=== PATIENT | female | born 1975 | race Caucasian/White ===

== ENCOUNTER 2017-02-07 14:56 | Emergency (ER) | payer OTHER ==
[~2017-02-07] VITALS: Ht 147.3 cm; Wt 81.6 kg
[~2017-02-07 14:56] MED LIST: SYN100 PO
[2017-02-07 14:59] VITALS: TEMP 37.5; Ht 147.3 cm; Wt 81.6 kg
[2017-02-07] MEDS ORDERED: ALBUT/IPRATROP 3MG/0.5MG NEB 3 ML VIAL INH STA (15:12)
--- NOTE | 2017-02-07 15:47 | DIAGNOSTIC IMAGING REPORT ---
CHEST 2 VIEWS ROUTINE CLINICAL HISTORY: cough eval for pnea cough. Dyspnea. COMPARISON STUDY: None FINDINGS: Poorly defined parenchymal infiltrate left base. This possibly is left lower lobe in distribution. Lungs otherwise appear clear. No evidence for cardiac enlargement. Diaphragms smooth. IMPRESSION: Left lower lobe infiltrate. Electronically signed by: David Arias M.D. 02/07/2017 3:46 PM Dictated Date/Time: 02/07/2017 3:45 PM
[2017-02-07] MEDS ORDERED: ALBUTEROL HFA 8 GM INHALER INH STA (16:29)
[2017-02-07] MEDS ORDERED: AZITHROMYCIN 250 MG TAB PO STA (16:29)
[2017-02-07] MEDS ORDERED: AZIT250T PO (16:32)
[2017-02-07 16:43] VITALS: BP 140/78; PULSE 100; O2SAT 96
--- NOTE | 2017-02-07 22:46 | EMERGENCY ROOM VISIT NOTE ---
History Report prepared by Rickeyibparisa: Sena Narvaez Under the Supervision of: Dr. Sami Pearson M.D. First contact with patient: 15:05 Chief Complaint: COUGH Stated Complaint: CANT BREATH, CHEST HURTS History of Present Illness The patient is a 42 year old female who presents to the Emergency Room with complaints of a persistent cough for the past 1 week. She reports she has been wheezing but denies any history of asthma or COPD. She notes the cough keeps her up at night. The patient is a current smoker but states she has not smoked "in a couple days" because of being sick. She also complains of rhinorrhea and a fever. The fever has not been over 100 degrees and she has been taking Ibuprofen, which has provided good relief. 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 She denies any chance of being . Source of History: patient Onset: 1 week [employer] Position: chest Symptom Intensity: moderate Quality: other (cough) Timing: other (persistent) Modifying Factors (Worsening): other (nighttime) Associated Symptoms: + fevers Review of Systems See HPI for pertinent positives & negatives. A total of 10 systems reviewed and were otherwise negative. Past Medical & Surgical Medical Problems: (1) ESOPHAGEAL REFLUX (2) HYPOTHYROIDISM NOS (3) LUMBAGO (4) TOBACCO USE DISORDER Social History Smoking Status: Current Every Day Smoker Alcohol Use: none Drug Use: none Marital Status: Housing Status: lives with family Occupation Status: employed Current/Historical Medications Scheduled Azithromycin (Zithromax), 250 MG PO DAILY Allergies Coded Allergies: No Known Allergies (Verified , 09/03/10) Physical Exam Vital Signs Date Time Temp Pulse Resp B/P Pulse Ox O2 Delivery O2 Flow Rate FiO2 02/07/17 16:43 100 22 140/78 96 02/07/17 15:36 102 22 111/86 96 Nebulizer 7.0 02/07/17 15:33 91 Room Air 02/07/17 14:59 37.5 98 18 130/76 91 Room Air Physical Exam Constitutional: Vital signs reviewed. Eyes: Pupils are equal round reactive to light. Conjunctiva are noninjected. ENT: Pharynx is clear without erythema or exudate. Mucous membranes are moist. Neck supple without meningeal signs. Respiratory: Diffuse wheezing bilaterally. Breath sounds are equal bilaterally. Cardiovascular: Regular rate and rhythm. No rubs or gallops. GI: Soft, nondistended and nontender. Bowel sounds are present. Musculoskeletal: No peripheral edema. No lower extremity tenderness. Integumentary: No cyanosis. Neurological: The patient is awake and alert. No focal deficits. Psychiatric: Normal affect. Medical Decision & Procedures ER Provider Diagnostic Interpretation: This X-Ray was reviewed and interpreted by myself and the radiologist. CHEST 2 VIEWS ROUTINE CLINICAL HISTORY: cough eval for pnea cough. Dyspnea. COMPARISON STUDY: None FINDINGS: Poorly defined parenchymal infiltrate left base. This possibly is left lower lobe in distribution. Lungs otherwise appear clear. No evidence for cardiac enlargement. Diaphragms smooth. IMPRESSION: Left lower lobe infiltrate. Electronically signed by: David Arias M.D. 02/07/2017 3:46 PM Medications Administered Medications (Trade) Dose Ordered Sig/Irving Route Start Time Stop Time Status Last Admin Dose Admin Albuterol/ Ipratropium (Duoneb) 3 ml NOW STAT INH 02/07/17 15:12 02/07/17 15:14 DC 02/07/17 15:32 3 ML Azithromycin (Zithromax Tab) 500 mg NOW STAT PO 02/07/17 16:29 02/07/17 16:30 DC 02/07/17 16:43 500 MG Albuterol (Ventolin Hfa Inhaler) 2 puffs NOW STAT INH 02/07/17 16:29 02/07/17 16:30 DC 02/07/17 16:43 2 PUFFS ED Course 1508: The patient was evaluated in room C10. A complete history and physical exam was performed. 1512: DuoNeb 3 ml INH. 1625: I reevaluated the patient. She still has minor wheezing on exam. Her Oxygen saturation is 92% on room air. I discussed her test results and discharge instructions and she verbalized complete understanding and agreement. 1629: Albuterol 2 puffs INH, Azithromycin 500 mg PO. Medical Decision This is a 42-year-old female who presents with cough and cold symptoms. Differential diagnosis includes pneumonia, bronchitis, URI, COPD. I did perform a limited focused review of portions of the patient's old chart on the electronic medical record. The patient has had no recent pertinent visits to this hospital. I did evaluate the patient as noted above. The patient is presenting with wheezing as well as cough and cold symptoms. She is a smoker. I did order and personally review the patient's chest x-ray as described above. She does appear to have an infiltrate at the left base. I did treat her with a DuoNeb. On reexamination her wheezing is improved. She did feel better. I did discuss the test results with her. She was given an albuterol MDI and a prescription for Zithromax. She was given her first dose today. She was advised to stop smoking. She was told to follow with her doctor and given a work note. Impression Primary Impression: Pneumonia involving left lung Additional Impression: Bronchospasm Scribe Attestation The scribe's documentation has been prepared under my direct and personally reviewed by me in its entirety. I confirm that the note above accurately reflects all work, treatment, procedures, and medical decision making performed by me. Departure Information Dispostion Home / Self-Care Prescriptions Azithromycin (Zithromax) 250 Mg Tab 250 MG PO DAILY, #4 TAB Prov: Sami Pearson M.D. 02/07/17 Referrals Elicia Camarillo D.O. (PCP) Patient Instructions My [facility], Pneumonia D[facility] Additional Instructions You have been examined and treated today on an emergency basis only. This is not a substitute for, or an effort to provide, complete comprehensive medical care. It is impossible to recognize and treat all injuries or illnesses in a single emergency department visit. It is therefore important that you follow up closely with your physician. Call as soon as possible for an appointment. Return for worsening symptoms or if you develop high fever, vomiting, chest pain or any other concerning symptoms. Use MDI albuterol 2 puffs every 4 hours as needed for wheezing. Start Zithromax prescription tomorrow. Problem Qualifiers Primary Impression: Pneumonia involving left lung Pneumonia type: due to unspecified organism Lung location: lower lobe of lung Qualified Codes: J18.1 - Lobar pneumonia, unspecified organism
[2017-03-29] MEDS ORDERED: ADVIN25050 INH (16:37)
[2017-03-29] MEDS ORDERED: MTR600X PO (16:37)
[2017-03-29] MEDS ORDERED: SYN75 PO (16:37)
[2017-03-29] MEDS ORDERED: SENN8.6T7 PO (16:37)
[2017-03-29] MEDS ORDERED: PRED10TA PO (16:37)
[2017-03-29] MEDS ORDERED: IPRA1AER2 INH (16:37)
== END 2017-02-07 16:44 | disposition home or self-care (01) ==
LOC: C.EDB 14:57 → C.EDC 16:44
DX: J18.1 Lobar pneumonia, unspecified organism (principal); J98.01 Acute bronchospasm; F17.200 Nicotine dependence, unspecified, uncomplicated; J34.89 Other specified disorders of nose and nasal sinuses; R50.9 Fever, unspecified; K21.9 Gastro-esophageal reflux disease without esophagitis; E03.9 Hypothyroidism, unspecified; M54.5 Low back pain

== ENCOUNTER 2017-03-25 15:42 | Inpatient (IN) | payer OTHER ==
[~2017-03-25] VITALS: Ht 147.3 cm; Wt 85.7 kg
[~2017-03-25 15:42] MED LIST changes: +AZIT250T PO; -SYN100 PO
[2017-03-25] MEDS ORDERED: ONDANSETRON INJ 2 MG/ML 2 ML VIAL IV STA (16:16)
[2017-03-25] MEDS ORDERED: MoRPHine SULFATE 4 MG/ML 1 ML CARP\\VIAL IV STA (16:16)
[2017-03-25] MEDS ORDERED: HYDR-5688 PO (16:47)
[2017-03-25] MEDS ORDERED: ALBU18002 PO (16:47)
[2017-03-25] MEDS ORDERED: HYDROmorphone INJ 1 MG/ML SYR IV STA (16:52)
[2017-03-25 17:06] LABS: BASO % 0.4 %; BASO ABS # 0.05 K/uL (0-0.2); COMPLETE YES; EOS % 7.2 %; HEMATOCRIT 43.5 % (37-47); IG% 0.2 %; LYMPH ABS # 2.03 K/uL (1.2-3.4); MEAN CELL VOLUME 85.5 fL (80-100); MEAN CORPUSCULAR HEMOGLOBIN 27.9 pg (25-34); MEAN CORPUSCULAR HGB CONC 32.6 g/dl (32-36); MEAN PLATELET VOLUME 9.8 fL (7.4-10.4); MONO % 5.7 %; NEUT % 70.5 %; PLATELET COUNT 305 K/uL (130-400); RED BLOOD COUNT 5.09 M/uL (4.2-5.4); WHITE BLOOD COUNT 12.69 K/uL (4.8-10.8)
[2017-03-25 17:25] LABS: ALT/SGPT 22 U/L (12-78); AST/SGOT 16 U/L (15-37); BLOOD UREA NITROGEN 13 mg/dl (7-18); BUN/CREATININE RATIO 17.1 (10-20); CALCIUM 9.4 mg/dl (8.5-10.1); CARBON DIOXIDE 28 mmol/L (21-32); CHLORIDE 108 mmol/L (98-107); CREATININE 0.78 mg/dl (0.60-1.20); GLUCOSE 101 mg/dl (70-99); POTASSIUM 4.3 mmol/L (3.5-5.1); SODIUM 140 mmol/L (136-145)
[2017-03-25 17:27] LABS: ALKALINE PHOSPHATASE 96 U/L (45-117)
[2017-03-25] MEDS ORDERED: ALBUT/IPRATROP 3MG/0.5MG NEB 3 ML VIAL INH STA (17:36)
--- NOTE | 2017-03-25 17:44 | DIAGNOSTIC IMAGING REPORT ---
KUB CLINICAL HISTORY: Right flank pain. Evaluate for stone. COMPARISON STUDY: None. FINDINGS: A 3 mm right pelvic density is noted. Bowel gas pattern is normal. IMPRESSION: 1. No definite urinary calculi. Indeterminate 3 mm right pelvic density. A ureteral calculus could have this appearance but is considered unlikely. 2. No evidence for a bowel obstruction. Electronically signed by: Marcus Whitlock M.D. 03/25/2017 5:42 PM Dictated Date/Time: 03/25/2017 5:40 PM
--- NOTE | 2017-03-25 17:46 | DIAGNOSTIC IMAGING REPORT ---
RIGHT RIBS UNILATERAL WITH PA CHEST CLINICAL HISTORY: Right rib pain. COMPARISON STUDY: Chest radiograph February 07, 2017. FINDINGS: There is no pneumothorax or pleural effusion. Cardiac size is normal. Mediastinal contours are normal. No acute right rib fractures are identified. IMPRESSION: No pneumothorax. No acute right rib fractures identified. Electronically signed by: Marcus Whitlock M.D. 03/25/2017 5:44 PM Dictated Date/Time: 03/25/2017 5:42 PM
[2017-03-25] MEDS ORDERED: OPTIRAY 320 IV PRN (18:15)
--- NOTE | 2017-03-25 18:45 | DIAGNOSTIC IMAGING REPORT ---
CT ANGIOGRAPHY OF THE CHEST, PULMONARY EMBOLUS PROTOCOL CLINICAL HISTORY: Right-sided chest pain. Right flank pain. COMPARISON STUDY: Chest radiograph February 07, 2017. TECHNIQUE: Following IV administration of 93 mL of Optiray-320, helical axial images of the chest were obtained utilizing the pulmonary embolus protocol. Maximal intensity projections and sagittal and coronal reformats were viewed on an independent 3D workstation. IV contrast was administered without complication. CT DOSE: 1045.06 mGy.cm FINDINGS: No pulmonary emboli are identified. There is no evidence of thoracic aortic dissection. The size of the heart is normal. There is no pericardial effusion. There is no pneumothorax or pleural effusion. There are scattered mild tree-in-bud opacities within the left lung which have improved since exam of February 07, 2017. There is an acute nondisplaced fracture of the lateral right ninth rib. IMPRESSION: 1. No pulmonary emboli identified. 2. Acute nondisplaced fracture of the lateral right ninth rib. No pneumothorax. 3. Scattered tree-in-bud opacities within the left lung which have improved since exam February 07, 2017. The findings suggest a mild infectious process. Electronically signed by: Marcus Whitlock M.D. 03/25/2017 6:43 PM Dictated Date/Time: 03/25/2017 6:35 PM
[2017-03-25] MEDS ORDERED: METHYLPREDNISOLONE 125 MG VIAL IV STA (18:54)
--- NOTE | 2017-03-25 18:54 | DIAGNOSTIC IMAGING REPORT ---
CT OF THE ABDOMEN AND PELVIS WITH CONTRAST CLINICAL HISTORY: Right flank pain. COMPARISON STUDY: KUB performed earlier today. TECHNIQUE: Following IV administration of 93 mL of Optiray-320, axial images of the abdomen and pelvis were obtained from the lung bases to the proximal femurs. Images were reviewed in the axial, sagittal, and coronal planes. IV contrast was administered without complication. The chest CT will be reported separately. FINDINGS: There is an acute nondisplaced fracture of the lateral right ninth rib. No pneumatosis, free air or portal venous gas is present. Liver, spleen, adrenal glands, kidneys and pancreas are unremarkable. There is no hydronephrosis. There is eventration of the anterior abdominal wall with a small fat-containing umbilical hernia. There is left colon diverticulosis without evidence for acute diverticulitis. There is no lymphadenopathy. No significant skeletal abnormality is are identified. Follicles are noted within the ovaries. The appendix is normal. There is no evidence for a bowel obstruction. There is a 3.3 x 2.8 cm tubular abnormality located between the rectum and the coccyx. This is likely congenital. IMPRESSION: 1. Acute nondisplaced fracture of the lateral right ninth rib. 2. No acute process within the abdomen or pelvis. 3. Left colon diverticulosis without evidence for acute diverticulitis. 5. 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 This is probably benign but is indeterminate and a follow-up nonemergent MRI of the pelvis with and without contrast is recommended. Electronically signed by: Marcus Whitlock M.D. 03/25/2017 6:52 PM Dictated Date/Time: 03/25/2017 6:46 PM
[2017-03-25] MEDS ORDERED: ALBUT/IPRATROP 3MG/0.5MG NEB 3 ML VIAL INH ONE (19:00)
[2017-03-25 19:25] VITALS: PULSE 93; O2SAT 98
[2017-03-25 19:38] LABS: URINE APPEARANCE CLEAR (CLEAR); URINE BILIRUBIN NEG (NEG); URINE COLOR YELLOW; URINE NITRITE NEG (NEG); URINE SPECIFIC GRAVITY > 1.045 (1.000-1.030); UROBILINOGEN NEG (NEG)
--- NOTE | 2017-03-25 19:42 | EMERGENCY ROOM VISIT NOTE ---
History Report prepared by Tani: Jamey Hankins Under the Supervision of: Dr. Sami Pearson M.D. First contact with patient: 16:04 Chief Complaint: BACK PAIN Stated Complaint: KIDNEY/BACK PAIN History of Present Illness The patient is a 42 year old female who presents to the Emergency Room with complaints of worsening right flank pain that started 2 weeks ago. She comes to the ED in a wheelchair and cannot get up out of it. The patient went to her primary care physician's office last week, thinking that she may be having a kidney stone. The patient had been having foggy urine and hematuria. Her ultrasound came back revealing no kidney stones, but it did reveal that her right kidney was larger than her left, and the patient was advised to drink lots of fluid. The patient states that she may have been told she has hydronephrosis. The patient also had a low grade temperature of 99. Today, she says that she went to the bathroom, and stood up, washed her hands, and coughed , and felt something pop in her right side. This pop worsened her pain. Movement worsens her pain. She has had a lingering cough from a recent bout with pneumonia. The patient denies any chest pain, vomiting, abdominal pain, diarrhea, or current urinary symptoms. She is a smoker. The patient denies any chance of . Source of History: patient Onset: 2 weeks ago Position: other (right flank) Symptom Intensity: cannot get out of wheelchair due to pain Quality: sharp Timing: worsening Modifying Factors (Worsening): movement Associated Symptoms: No abdominal pain, No chest pain, No diarrhea, No urinary symptoms (had foggy urine and hematuria last week however), No vomiting Note: Associated symptoms: No other associated symptoms noted, but still has lingering cough from bout of pneumonia, which caused worsening pain today. Low grade temperature in office last week. Review of Systems See HPI for pertinent positives & negatives. A total of 10 systems reviewed and were otherwise negative. Past Medical & Surgical Medical Problems: (1) ESOPHAGEAL REFLUX (2) HYPOTHYROIDISM NOS (3) LUMBAGO (4) TOBACCO USE DISORDER Family History No pertinent family history Social History Smoking Status: Current Every Day Smoker Alcohol Use: none Drug Use: none Marital Status: Housing Status: lives with family Occupation Status: employed Current/Historical Medications Scheduled PRN Albuterol Sulfate (Proair Respiclick), 1 PUFF PO BID PRN for SOB/Wheezing Hydrocodone/Acetaminophen 5MG/325MG ([place] 5MG/325MG), 1 TABLET PO Q6 PRN for Pain Allergies Coded Allergies: No Known Allergies (Verified , 03/25/17) Physical Exam Vital Signs Date Time Temp Pulse Resp B/P Pulse Ox O2 Delivery O2 Flow Rate FiO2 03/25/17 19:25 93 22 98 Nasal Cannula 3.0 03/25/17 18:08 95 18 94 Nasal Cannula 2.0 03/25/17 18:03 97 03/25/17 17:52 98 22 137/104 87 Room Air 03/25/17 16:01 36.7 100 22 123/68 94 Physical Exam Constitutional: Vital signs reviewed. Eyes: Pupils are equal round reactive to light. Conjunctiva are noninjected. ENT: Pharynx is clear without erythema or exudate. Mucous membranes are moist. Neck supple without meningeal signs. Respiratory: Wheezing bilaterally. Breath sounds are equal bilaterally. Cardiovascular: Regular rate and rhythm. No rubs or gallops. GI: Soft, nondistended and nontender. Bowel sounds are present. Musculoskeletal: No peripheral edema. Very tender right lower ribs. No lower extremity tenderness. Integumentary: No cyanosis. Neurological: The patient is awake and alert. No focal deficits. Psychiatric: Normal affect. Medical Decision & Procedures ER Provider Diagnostic Interpretation: Radiology results as stated below per my review and the radiologist's interpretation: RIGHT RIBS UNILATERAL WITH PA CHEST CLINICAL HISTORY: Right rib pain. COMPARISON STUDY: Chest radiograph February 07, 2017. FINDINGS: There is no pneumothorax or pleural effusion. Cardiac size is normal. Mediastinal contours are normal. No acute right rib fractures are identified. IMPRESSION: No pneumothorax. No acute right rib fractures identified. Electronically signed by: Marcus Whitlock M.D. 03/25/2017 5:44 PM Dictated Date/Time: 03/25/2017 5:42 PM KUB CLINICAL HISTORY: Right flank pain. Evaluate for stone. COMPARISON STUDY: None. FINDINGS: A 3 mm right pelvic density is noted. Bowel gas pattern is normal. IMPRESSION: 1. No definite urinary calculi. Indeterminate 3 mm right pelvic density. A ureteral calculus could have this appearance but is considered unlikely. 2. No evidence for a bowel obstruction. Electronically signed by: Marcus Whitlock M.D. 03/25/2017 5:42 PM Dictated Date/Time: 03/25/2017 5:[address] ANGIOGRAPHY OF THE CHEST, PULMONARY EMBOLUS PROTOCOL CLINICAL HISTORY: Right-sided chest pain. Right flank pain. COMPARISON STUDY: Chest radiograph February 07, 2017. TECHNIQUE: Following IV administration of 93 mL of Optiray-320, helical axial images of the chest were obtained utilizing the pulmonary embolus protocol. Maximal intensity projections and sagittal and coronal reformats were viewed on an independent 3D workstation. IV contrast was administered without complication. CT DOSE: 1045.06 mGy.cm FINDINGS: No pulmonary emboli are identified. There is no evidence of thoracic aortic dissection. The size of the heart is normal. There is no pericardial effusion. There is no pneumothorax or pleural effusion. There are scattered mild tree-in-bud opacities within the left lung which have improved since exam of February 07, 2017. There is an acute nondisplaced fracture of the lateral right ninth rib. IMPRESSION: 1. No pulmonary emboli identified. 2. Acute nondisplaced fracture of the lateral right ninth rib. No pneumothorax. 3. Scattered tree-in-bud opacities within the left lung which have improved since exam February 07, 2017. The findings suggest a mild infectious process. Electronically signed by: Marcus Whitlock M.D. 03/25/2017 6:43 PM Dictated Date/Time: 03/25/2017 6:[address] OF THE ABDOMEN AND PELVIS WITH CONTRAST CLINICAL HISTORY: Right flank pain. COMPARISON STUDY: KUB performed earlier today. TECHNIQUE: Following IV administration of 93 mL of Optiray-320, axial images of the abdomen and pelvis were obtained from the lung bases to the proximal femurs. Images were reviewed in the axial, sagittal, and coronal planes. IV contrast was administered without complication. The chest CT will be reported separately. FINDINGS: There is an acute nondisplaced fracture of the lateral right ninth rib. No pneumatosis, free air or portal venous gas is present. Liver, spleen, adrenal glands, kidneys and pancreas are unremarkable. There is no hydronephrosis. There is eventration of the anterior abdominal wall with a small fat-containing umbilical hernia. There is left colon diverticulosis without evidence for acute diverticulitis. There is no lymphadenopathy. No significant skeletal abnormality is are identified. Follicles are noted within the ovaries. The appendix is normal. There is no evidence for a bowel obstruction. There is a 3.3 x 2.8 cm tubular abnormality located between the rectum and the coccyx. This is likely congenital. IMPRESSION: 1. Acute nondisplaced fracture of the lateral right ninth rib. 2. No acute process within the abdomen or pelvis. 3. Left colon diverticulosis without evidence for acute diverticulitis. 5. 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 This is probably benign but is indeterminate and a follow-up nonemergent MRI of the pelvis with and without contrast is recommended. Electronically signed by: Marcus Whitlock M.D. 03/25/2017 6:52 PM Dictated Date/Time: 03/25/2017 6:46 PM Laboratory Results 03/25/17 16:49 Red Blood Count 5.09, Mean Corpuscular Volume 85.5, Mean Corpuscular Hemoglobin 27.9, Mean Corpuscular Hemoglobin Concent 32.6, Mean Platelet Volume 9.8, Neutrophils (%) (Auto) 70.5, Lymphocytes (%) (Auto) 16.0, Monocytes (%) (Auto) 5.7, Eosinophils (%) (Auto) 7.2, Basophils (%) (Auto) 0.4, Neutrophils # (Auto) 8.95, Lymphocytes # (Auto) 2.03, Monocytes # (Auto) 0.72, Eosinophils # (Auto) 0.92, Basophils # (Auto) 0.05 03/25/17 16:49 Test 03/25/17 16:49 03/25/17 19:09 White Blood Count 12.69 K/uL (4.8-10.8) Red Blood Count 5.09 M/uL (4.2-5.4) Hemoglobin 14.2 g/dL (12.0-16.0) Hematocrit 43.5 % (37-47) Mean Corpuscular Volume 85.5 fL (80-100) Mean Corpuscular Hemoglobin 27.9 pg (25-34) Mean Corpuscular Hemoglobin Concent 32.6 g/dl (32-36) Platelet Count 305 K/uL (130-400) Mean Platelet Volume 9.8 fL (7.4-10.4) Neutrophils (%) (Auto) 70.5 % Lymphocytes (%) (Auto) 16.0 % Monocytes (%) (Auto) 5.7 % Eosinophils (%) (Auto) 7.2 % Basophils (%) (Auto) 0.4 % Neutrophils # (Auto) 8.95 K/uL (1.4-6.5) Lymphocytes # (Auto) 2.03 K/uL (1.2-3.4) Monocytes # (Auto) 0.72 K/uL (0.11-0.59) Eosinophils # (Auto) 0.92 K/uL (0-0.5) Basophils # (Auto) 0.05 K/uL (0-0.2) RDW Standard Deviation 49.2 fL (36.4-46.3) RDW Coefficient of Variation 15.7 % (11.5-14.5) Immature Granulocyte % (Auto) 0.2 % Immature Granulocyte # (Auto) 0.02 K/uL (0.00-0.02) Anion Gap 4.0 mmol/L (3-11) Est Creatinine Clear Calc Drug Dose 83.0 ml/min Estimated GFR () 107.9 Estimated GFR (Non- 93.1 BUN/Creatinine Ratio 17.1 (10-20) Calcium Level 9.4 mg/dl (8.5-10.1) Total Bilirubin 0.2 mg/dl (0.2-1) Direct Bilirubin < 0.1 mg/dl (0-0.2) Aspartate Amino Transf (AST/SGOT) 16 U/L (15-37) Alanine Aminotransferase (ALT/SGPT) 22 U/L (12-78) Alkaline Phosphatase 96 U/L (45-117) Troponin I < 0.015 ng/ml (0-0.045) Total Protein 7.8 gm/dl (6.4-8.2) Albumin 3.9 gm/dl (3.4-5.0) Lipase 96 U/L (73-393) Urine Test NEG (NEG) Laboratory results as reviewed by me. Medications Administered Medications (Trade) Dose Ordered Sig/Irving Route Start Time Stop Time Status Last Admin Dose Admin Morphine Sulfate (MoRPHine SULFATE INJ) 4 mg ONE STAT IV 03/25/17 16:16 03/25/17 16:17 DC 03/25/17 16:41 4 MG Ondansetron HCl (Zofran Inj) 4 mg NOW STAT IV 03/25/17 16:16 03/25/17 16:17 DC 03/25/17 16:39 4 MG Hydromorphone HCl (Dilaudid Inj) 0.5 mg NOW STAT IV 03/25/17 16:52 03/25/17 16:53 DC 03/25/17 17:05 0.5 MG Albuterol/ Ipratropium (Duoneb) 3 ml NOW STAT INH 03/25/17 17:36 03/25/17 17:37 DC 03/25/17 17:56 3 ML Albuterol/ Ipratropium (Duoneb) 12 ml ONE ONCE INH 03/25/17 19:00 03/25/17 19:01 DC 03/25/17 19:25 12 ML ECG Indication: other (flank pain) Rate (beats per minute): 96 Rhythm: normal sinus Findings: no acute ischemic change, no ectopy ED Course 1605: The patient was evaluated in room B5. A complete history and physical exam was performed. 1615: I looked at the patient's medical records. The patient had a renal ultrasound on the which showed mild left hydronephrosis. 1616: Ordered Zofran Inj 4 mg IV, Morphine Sulfate Inj 4 mg IV. 1652: Ordered Dilaudid Inj 0.5 mg IV. 1653: I reevaluated the patient and she still has significant pain. 1736: Ordered Duoneb 3 ml INH. 1755: I reevaluated the patient and she is still in significant pain and her O2 saturation is only 87 on room air. She is getting a nebulizer now. She says that she is absolutely not , and we do not need to check before we do the CT scan. 1832: I reevaluated the patient and she is still having pain. 1853: I reevaluated the patient and her O2 saturation is down to 80 on room air when she went to the bathroom. She is still very wheezy on examination of her lungs. I am going to give her an hour long nebulizer treatment. The patient verbally expressed understanding and agreement of the treatment plan. The patient will be evaluated for further treatment. 1854: Ordered Solu-Medrol IV 125 mg IV. 1900: Ordered Duoneb 12 ml INH. 1908: I discussed the patient with Dr. Castillo Stuart security director - she will evaluate the patient for further treatment. Medical Decision This is a 42-year-old female who presents with right sided flank pain. Differential diagnosis includes strain, pneumothorax, pleural effusion, pneumonia, pleurisy, pulmonary embolism, kidney stone. I did perform a limited focused review of portions of the patient's old chart on the electronic medical record. The patient was seen here by myself for pneumonia in January and was treated with Zithromax. I did evaluate the patient as noted above. The patient is presenting with right flank pain for about 2 weeks. She states it got suddenly worse today when she coughed. IV access was established. I did treat her with morphine and Zofran IV. She had continued pain and was given Dilaudid IV. She was also given a DuoNeb for her wheezing. She denies a history of COPD and asthma but she does smoke. I did order and personally review the patient's KUB and chest x -rays as described above. There is no evidence of kidney stone, pneumothorax, pneumonia or rib fracture. I did order and review the patient's blood work as noted in the electronic medical record.I did reassess the patient. She is still in fairly significant pain. Her O2 saturation is in the 80s on room air. On auscultation she has continued wheezing. Because of her flank pain and hypoxia, I did order a CT of the chest, abdomen and pelvis. I did review the images myself as well as the radiology report as described above. She does not have a pulmonary embolus or hydronephrosis. She does have a nondisplaced right ninth rib fracture. I did discuss the test results with the patient. I did obtain a 12-lead EKG. There are no acute ischemic changes. I did treat her with an hour-long DuoNeb and Solu-Medrol IV as her O2 saturation remains in the 80s. She was given supplemental oxygen. I did discuss the case with the hospitalist and outpatient case manager. Consults Time Called: 1899 Consulting Physician: Dr. Castillo Stuart security director Returned Call: 1907 I discussed the patient with Dr. Castillo Stuart security director - she will evaluate the patient for further treatment. Impression Primary Impression: Hypoxia Additional Impressions: Right rib fracture Bronchospasm Scribe Attestation The scribe's documentation has been prepared under my direct and personally reviewed by me in its entirety. I confirm that the note above accurately reflects all work, treatment, procedures, and medical decision making performed by me. Departure Information Dispostion Being Evaluated By Hospitalist Referrals Elicia Camarillo D.O. (PCP) Patient Instructions My [facility] Problem Qualifiers Additional Impressions: Right rib fracture Encounter type: initial encounter Rib fracture type: single rib Fracture type: closed Qualified Codes: S22.31XA - Fracture of one rib, right side, initial encounter for closed fracture
[2017-03-25 19:48] LABS: MANUAL MICROSCOPIC REQUIRED? NO; REVIEW REQ? NO
[2017-03-25 19:52] VITALS: O2SAT 98; Ht 147.3 cm; Wt 85.7 kg
[2017-03-25] MEDS: SODIUM CHLORIDE 0.9% 1000ML 1,000 ML IV SCH (19:58)
[2017-03-25] MEDS ORDERED: ACETAMINOPHEN 325 MG TAB PO PRN (20:00)
[2017-03-25] MEDS ORDERED: ONDANSETRON INJ 2 MG/ML 2 ML VIAL IV PRN (20:00)
--- NOTE | 2017-03-25 20:13 | History and Physical ---
History & Physical Date & Time of Service: Mar 25, 2017 at 20:12 Chief Complaint: Kidney/Back Pain Primary Care Physician: Elicia Camarillo D.O. History of Present Illness Source: patient Patient is a 42yr old female with PMH of Hypothyroidism, lumbago, GERD and Tobacco use disorder presents for evaluation of worsening right flank pain which started 2 weeks ago. Patient was recent diagnosis of pneumonia and bronchitis one month ago and since then has persistent cough. States having clear expectoration which is resolving per patient. Patient was evaluated by her PCP last for foggy urine and hematuria and had renal USD which showed no kidney stones but was told her right kidney was larger than her left and she had hydronephrosis per patient. She also states having low grade fever intermittently. Today, patient heard a popping sound on her right side after a coughing episode and since then has a worsening right flank pain which increases with movement. Denies any history of fall, chest pain, SOB, palpitations, dizziness, urinary frequency or hematuria, abd pain, diarrhea but states having wheezing. Denies any other relevant history. Past Medical/Surgical History Medical Problems: (1) ESOPHAGEAL REFLUX Status: Chronic (2) HYPOTHYROIDISM NOS Status: Chronic (3) LUMBAGO Status: Chronic (4) TOBACCO USE DISORDER Status: Chronic Past Surgical History: Tonsillectomy Shoulder surgery Family History No pertinent family history Reviewed. Not relevant Social History Smoking Status: Current Every Day Smoker Alcohol Use: socially Drug Use: none Marital Status: Occupational Status: employed Immunizations History of Influenza Vaccine: No History of Tetanus Vaccine?: Yes Tetanus Immunization Date: April 24, 2004 History of Pneumococcal: No History of Hepatitis B Vaccine: Unknown Multi-Drug Resistant Organisms History of MDRO: No Allergies Coded Allergies: No Known Allergies (Verified , 03/25/17) Home Medications Scheduled PRN Albuterol Sulfate (Proair Respiclick), 1 PUFF PO BID PRN for SOB/Wheezing Hydrocodone/Acetaminophen 5MG/325MG ([place] 5MG/325MG), 1 TABLET PO Q6 PRN for Pain Review of Systems See HPI for pertinent positives & negatives. A total of 10 systems reviewed and were otherwise negative. Physical Exam Vital Signs Date Time Temp Pulse Resp B/P Pulse Ox O2 Delivery O2 Flow Rate FiO2 03/25/17 19:52 98 Nasal Cannula 3.0 03/25/17 19:25 93 22 98 Nasal Cannula 3.0 03/25/17 18:08 95 18 94 Nasal Cannula 2.0 03/25/17 18:03 97 03/25/17 17:52 98 22 137/104 87 Room Air 03/25/17 16:01 36.7 100 22 123/68 94 General Appearance: WD/WN, + mild distress (Secondary to pain) Head: normocephalic, atraumatic Eyes: normal inspection, PERRL, EOMI ENT: normal ENT inspection, hearing grossly normal Neck: supple, trachea midline Respiratory/Chest: no respiratory distress, no accessory muscle use, + wheezing , + pertinent finding (Decreased breath sounds) Cardiovascular: regular rate, rhythm, no edema, no murmur, + tachycardia Abdomen/GI: normal bowel sounds, soft, + pertinent finding (Right flank tenderness) Back: normal inspection, + right CVA tenderness Extremities/Musculoskelatal: normal inspection, no calf tenderness, no pedal edema Neurologic/Psych: mba intern II-XII nml as tested, no motor/sensory deficits, alert, normal mood/affect, oriented x 3 Skin: normal color, warm/dry Lymphatic: no adenopathy Diagnostics Laboratory Results Results Past 24 Hours Test 03/25/17 16:49 03/25/17 19:09 Range/Units White Blood Count 12.69 4.8-10.8 K/uL Red Blood Count 5.09 4.2-5.4 M/uL Hemoglobin 14.2 12.0-16.0 g/dL Hematocrit 43.5 37-47 % Mean Corpuscular Volume 85.5 80-100 fL Mean Corpuscular Hemoglobin 27.9 25-34 pg Mean Corpuscular Hemoglobin Concent 32.6 32-36 g/dl Platelet Count 305 130-400 K/uL Mean Platelet Volume 9.8 7.4-10.4 fL Neutrophils (%) (Auto) 70.5 % Lymphocytes (%) (Auto) 16.0 % Monocytes (%) (Auto) 5.7 % Eosinophils (%) (Auto) 7.2 % Basophils (%) (Auto) 0.4 % Neutrophils # (Auto) 8.95 1.4-6.5 K/uL Lymphocytes # (Auto) 2.03 1.2-3.4 K/uL Monocytes # (Auto) 0.72 0.11-0.59 K/uL Eosinophils # (Auto) 0.92 0-0.5 K/uL Basophils # (Auto) 0.05 0-0.2 K/uL RDW Standard Deviation 49.2 36.4-46.3 fL RDW Coefficient of Variation 15.7 11.5-14.5 % Immature Granulocyte % (Auto) 0.2 % Immature Granulocyte # (Auto) 0.02 0.00-0.02 K/uL Sodium Level 140 136-145 mmol/L Potassium Level 4.3 3.5-5.1 mmol/L Chloride Level 108 98-107 mmol/L Carbon Dioxide Level 28 21-32 mmol/L Anion Gap 4.0 3-11 mmol/L Blood Urea Nitrogen 13 7-18 mg/dl Creatinine 0.78 0.60-1.20 mg/dl Est Creatinine Clear Calc Drug Dose 83.0 ml/min Estimated GFR () 107.9 Estimated GFR (Non- 93.1 BUN/Creatinine Ratio 17.1 10-20 Random Glucose 101 70-99 mg/dl Calcium Level 9.4 8.5-10.1 mg/dl Total Bilirubin 0.2 0.2-1 mg/dl Direct Bilirubin < 0.1 0-0.2 mg/dl Aspartate Amino Transf (AST/SGOT) 16 15-37 U/L Alanine Aminotransferase (ALT/SGPT) 22 12-78 U/L Alkaline Phosphatase 96 45-117 U/L Troponin I < 0.015 0-0.045 ng/ml Total Protein 7.8 6.4-8.2 gm/dl Albumin 3.9 3.4-5.0 gm/dl Lipase 96 73-393 U/L Urine Color YELLOW Urine Appearance CLEAR CLEAR Urine pH 5.0 4.5-7.5 Urine Specific [place] > 1.045 1.000-1.030 Urine Protein NEG NEG Urine Glucose (UA) NEG NEG Urine Ketones NEG NEG Urine Occult Blood NEG NEG Urine Nitrite NEG NEG Urine Bilirubin NEG NEG Urine Urobilinogen NEG NEG Urine Leukocyte Esterase NEG NEG Urine Test NEG NEG Microbiology Results 03/25/17 Blood Culture, [place] Batch Pending 03/25/17 Blood Culture, [place] Batch Pending Diagnostic Radiology KUB: 1. No definite urinary calculi. Indeterminate 3 mm right pelvic density. A ureteral calculus could have this appearance but is considered unlikely. 2. No evidence for a bowel obstruction. CT chest: 1. No pulmonary emboli identified. 2. Acute nondisplaced fracture of the lateral right ninth rib. No pneumothorax. 3. Scattered tree-in-bud opacities within the left lung which have improved since exam February 07, 2017. The findings suggest a mild infectious process. CT abd: 1. Acute nondisplaced fracture of the lateral right ninth rib. 2. No acute process within the abdomen or pelvis. 3. Left colon diverticulosis without evidence for acute diverticulitis. 5. 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 This is probably benign but is indeterminate and a follow-up nonemergent MRI of the pelvis with and without contrast is recommended. EKG EKG: no acute ischemic changes Impression Assessment and Plan Acute Hypoxic respiratory failure Presented with 87% on RA Likely secondary to mild COPD exacerbation and shallow breathing from acute rib fracture Leukocytosis, low grade fever intermittently Currently saturating 94% on 2l NC CT chest: No PE, ? Left lung pneumonia Start on IV Levaquin, solumedrol, DuoNeb Oxygen PRN Acute nondisplaced fracture of the lateral right ninth rib: No pneumothorax on CT chest Pain control Right Flank pain: Presented with worsening right flank pain since 2 weeks Likely secondary to right rib fracture R/O renal caliculi/Hydronephrosis Check renal USD UA: pending CT ABD: no acute process Pain control Also on Levaquin consider Urology consult based on renal USD Incidental finding: tubular abnormality located between the rectum and coccyx. ? 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 May need nonemergent MRI of the pelvis as outpatient Hypothyroidism: Continue levothyroxine Check TSH, Free T4 as patient reports currently not taking levothyroxine Tobacco use disorder: Nicotine patch activities counselor to quit smoking DVT Px: Lovenox SQ Code status: Full code Advanced Directives Existing Living Will: No Existing Power of Indirect Fire Infantryman: No VTE Prophylaxis VTE Risk Assessment Done? Y/N: Yes Risk Level: Low
[2017-03-25] MEDS ORDERED: MoRPHine SULFATE 2 MG/ML CARP IV PRN (20:15)
[2017-03-25] MEDS ORDERED: MoRPHine SULFATE 2 MG/ML CARP ONE (20:19)
[2017-03-25 21:15] VITALS: BP 170/93; PULSE 114; TEMP 36.9; O2SAT 90
[2017-03-25] MEDS: OXYCODONE/ACETAMINOPHEN 5-325 TAB PO PRN (21:37)
[2017-03-25] MEDS ORDERED: LORAZEPAM INJ 0.5 MG in SYRINGE 0.25 ML IV ONE (22:00)
[2017-03-25] MEDS: LEVOFLOXACIN / D5W 750 MG in PREMIXED IN D5W 150 ML IV SCH (22:05)
[2017-03-25 22:16] LABS: PROTHROMBIN TIME (PATIENT) 10.3 SECONDS (9.0-12.0)
[2017-03-25] MEDS ORDERED: MoRPHine SULFATE 4 MG/ML 1 ML CARP\\VIAL ONE (22:17)
[2017-03-25] MEDS: MoRPHine SULFATE 4 MG/ML 1 ML CARP\\VIAL IV PRN (22:22)
[2017-03-25 23:28] VITALS: BP 120/77; PULSE 107; TEMP 36.7; O2SAT 92
[2017-03-25 23:32] VITALS: BP 94/55; PULSE 79; TEMP 37; O2SAT 93
[2017-03-26] VITALS (13 sets, daily range): BP systolic 113–122; BP diastolic 71–78; PULSE 83–106; TEMP 36.6–36.9; O2SAT 88–96
[2017-03-26] MEDS: OXYCODONE/ACETAMINOPHEN 5-325 TAB PO PRN ×2 (01:37→21:49)
[2017-03-26] MEDS: MoRPHine SULFATE 4 MG/ML 1 ML CARP\\VIAL IV PRN ×4 (04:14→23:54)
[2017-03-26 05:58] LABS: BASO % 0.1 %; BASO ABS # 0.01 K/uL (0-0.2); COMPLETE YES; IG% 0.2 %; LYMPH % 5.3 %; LYMPH ABS # 0.52 K/uL (1.2-3.4); MEAN CELL VOLUME 86.3 fL (80-100); MEAN CORPUSCULAR HEMOGLOBIN 27.7 pg (25-34); MEAN CORPUSCULAR HGB CONC 32.1 g/dl (32-36); MEAN PLATELET VOLUME 9.7 fL (7.4-10.4); MONO % 0.4 %; PLATELET COUNT 257 K/uL (130-400); RED BLOOD COUNT 4.52 M/uL (4.2-5.4); WHITE BLOOD COUNT 9.87 K/uL (4.8-10.8)
[2017-03-26] MEDS: LEVOTHYROXINE 75 MCG TAB PO SCH (06:21)
[2017-03-26 06:33] LABS: BUN/CREATININE RATIO 17.2 (10-20); CALCIUM 8.7 mg/dl (8.5-10.1); CREATININE 0.67 mg/dl (0.60-1.20); POTASSIUM 4.3 mmol/L (3.5-5.1)
[2017-03-26 06:43] LABS: THYROID STIMULATING HORMONE 3.46 uIu/ml (0.300-4.500)
--- NOTE | 2017-03-26 07:15 | DIAGNOSTIC IMAGING REPORT ---
ULTRASOUND KIDNEYS AND BLADDER CLINICAL HISTORY: Flank pain. Assess for renal calculi. COMPARISON STUDY: Abdominal CT dated 03/25/2017. TECHNIQUE: Real-time, grayscale, and color flow sonography of the kidneys and bladder is performed. Images are reviewed in the transverse and longitudinal planes. FINDINGS: Kidneys: The kidneys are normal in size. The right kidney measures 11.4 x 4.8 x 5.0 cm and the left kidney measures 10.1 x 5.4 x 4.2 cm. There is no hydronephrosis. No shadowing renal calculi are identified. There is no sonographic evidence of contour deforming renal mass lesion. The lower pole of the left kidney appears slightly heterogeneous. There is no corresponding lesion seen on today's CT scan and this is of doubtful significance. No perinephric fluid is identified. Bladder: The bladder is decompressed and grossly unremarkable. Bilateral ureteral jets were seen. IMPRESSION: 1. The kidneys are normal in size and without hydronephrosis. 2. There are no renal calculi identified as clinically queried. Note that this was better assessed on today's CT scan. 3. The bladder was decompressed and grossly unremarkable. Electronically signed by: Quan Esquivel M.D. 03/26/2017 7:13 AM Dictated Date/Time: 03/26/2017 7:11 AM
[2017-03-26] MEDS: ENOXAPARIN 40 MG/0.4 ML SYR SC SCH (08:00)
[2017-03-26] MEDS: ALBUT/IPRATROP 3MG/0.5MG NEB 3 ML VIAL INH SCH ×4 (08:14→20:00)
[2017-03-26] MEDS: NICOTINE 14 MG/24 HR TDSY TD SCH (08:24)
[2017-03-26] MEDS: METHYLPREDNISOLONE IV 40 MG in SYRINGE 0 ML IV SCH ×2 (08:25→21:46)
[2017-03-26] MEDS: SODIUM CHLORIDE 0.9% 1000ML 1,000 ML IV SCH ×2 (08:25→21:46)
[2017-03-26] MEDS ORDERED: PANTOprazole SOD 40 MG TAB PO ONE (09:16)
--- NOTE | 2017-03-26 09:42 | Progress Note ---
Medicine Progress Note Date & Time of Visit: Mar 26, 2017 at 09:36. Subjective 42 year old female with history of Smoking, Hypothyroidism, GERD, presenting with right flank pain. On exam, patient seen sitting up in bed states pain on the right lateral rib is about an 8, improving compared to yesterday breathing also improved compared to yesterday has white sputum, scant denies dizziness, headache, palpitations no abdominal pain, changes with urination or BM Objective Last 8 Hrs Date Time Temp Pulse Resp B/P Pulse Ox O2 Delivery O2 Flow Rate FiO2 03/26/17 08:14 94 22 93 Nasal Cannula 2.0 03/26/17 08:00 93 Nasal Cannula 2.0 03/26/17 07:20 36.6 83 16 113/75 93 2.0 03/26/17 04:39 36.9 94 20 114/71 92 Nasal Cannula 2.0 03/26/17 04:05 Nasal Cannula 3.0 Physical Exam: General- oriented x 3, not in distress, speaks in sentences with no effort Head- atraumatic Eyes- EOMI, anicteric ENT- oropharynx clear Neck- supple, no JVD, no adenopathy, no thyromegaly, no bruits appreciated Lungs- (+) mild scattered expiratory wheezing, good air entry Heart-normal rate, regular rhythm; no murmurs Abdomen- normal bowel sounds, soft, nontender Extremities- no pretibial edema, no calf tenderness; peripheral pulses intact Neuro- alert, oriented x 3; no gross focal deficits Skin- warm & dry Laboratory Results: Last 24 Hours Test 03/25/17 16:49 03/25/17 19:09 03/26/17 05:37 White Blood Count 12.69 K/uL 9.87 K/uL Red Blood Count 5.09 M/uL 4.52 M/uL Hemoglobin 14.2 g/dL 12.5 g/dL Hematocrit 43.5 % 39.0 % Mean Corpuscular Volume 85.5 fL 86.3 fL Mean Corpuscular Hemoglobin 27.9 pg 27.7 pg Mean Corpuscular Hemoglobin Concent 32.6 g/dl 32.1 g/dl Platelet Count 305 K/uL 257 K/uL Mean Platelet Volume 9.8 fL 9.7 fL Neutrophils (%) (Auto) 70.5 % 94.0 % Lymphocytes (%) (Auto) 16.0 % 5.3 % Monocytes (%) (Auto) 5.7 % 0.4 % Eosinophils (%) (Auto) 7.2 % 0.0 % Basophils (%) (Auto) 0.4 % 0.1 % Neutrophils # (Auto) 8.95 K/uL 9.28 K/uL Lymphocytes # (Auto) 2.03 K/uL 0.52 K/uL Monocytes # (Auto) 0.72 K/uL 0.04 K/uL Eosinophils # (Auto) 0.92 K/uL 0.00 K/uL Basophils # (Auto) 0.05 K/uL 0.01 K/uL RDW Standard Deviation 49.2 fL 50.4 fL RDW Coefficient of Variation 15.7 % 15.8 % Immature Granulocyte % (Auto) 0.2 % 0.2 % Immature Granulocyte # (Auto) 0.02 K/uL 0.02 K/uL Prothrombin Time 10.3 SECONDS Prothromb Time International Ratio 1.0 Sodium Level 140 mmol/L 137 mmol/L Potassium Level 4.3 mmol/L 4.3 mmol/L Chloride Level 108 mmol/L 105 mmol/L Carbon Dioxide Level 28 mmol/L 27 mmol/L Anion Gap 4.0 mmol/L 5.0 mmol/L Blood Urea Nitrogen 13 mg/dl 12 mg/dl Creatinine 0.78 mg/dl 0.67 mg/dl Est Creatinine Clear Calc Drug Dose 83.0 ml/min 96.6 ml/min Estimated GFR () 107.9 124.8 Estimated GFR (Non- 93.1 107.7 BUN/Creatinine Ratio 17.1 17.2 Random Glucose 101 mg/dl 158 mg/dl Calcium Level 9.4 mg/dl 8.7 mg/dl Total Bilirubin 0.2 mg/dl Direct Bilirubin < 0.1 mg/dl Aspartate Amino Transf (AST/SGOT) 16 U/L Alanine Aminotransferase (ALT/SGPT) 22 U/L Alkaline Phosphatase 96 U/L Troponin I < 0.015 ng/ml Total Protein 7.8 gm/dl Albumin 3.9 gm/dl Lipase 96 U/L Urine Color YELLOW Urine Appearance CLEAR Urine pH 5.0 Urine Specific [place] > 1.045 Urine Protein NEG Urine Glucose (UA) NEG Urine Ketones NEG Urine Occult Blood NEG Urine Nitrite NEG Urine Bilirubin NEG Urine Urobilinogen NEG Urine Leukocyte Esterase NEG Urine Test NEG Thyroid Stimulating Hormone (TSH) 3.460 uIu/ml Free Thyroxine 0.87 ng/dl Date/Time Source Procedure Growth Status 03/25/17 21:30 Blood Blood Culture Pending Received 03/25/17 21:27 Blood Blood Culture Pending Received Assessment & Plan 42 year old female with history of Smoking, Hypothyroidism, GERD, presenting with right flank pain. ACUTE HYPOXIC RESPIRATORY FAILURE LIKELY FROM MILD COPD EXACERBATION, RIGHT LATERAL RIB FRACTURE CT chest: No PE, ? Left lung pneumonia No pneumothorax on CT chest - improving clinically - continue Solumedrol 40mg BID, Nebs q6h, Levaquin Day 2 - pain control with PRN Toradol, Morphine continue IV fluids and Protonix, Senokot Incentive Spirometry - wean off oxygen Right Flank pain: Presented with worsening right flank pain since 2 weeks Likely secondary to right rib fracture - Renal US: unrevealing UA: essentially normal - ff up urine culture Incidental finding: tubular abnormality located between the rectum and coccyx. ? 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 - no abdominal pain, changes with urination or BM - MRI with and without contrast as outpatient Hypothyroidism: Continue levothyroxine Tobacco use disorder: Nicotine patch summer counselor to quit smoking DVT Px: Lovenox SQ Code status: Full code Dispo pending lives at home Current Inpatient Medications: Current Inpatient Medications Medications (Trade) Dose Ordered Sig/Irving Route Start Time Stop Time Status Last Admin Dose Admin Ioversol (Optiray 320) 100 ml UD PRN IV 03/25/17 18:15 03/29/17 18:14 Enoxaparin Sodium 40 mg 40 mg Q24H SC 03/26/17 07:00 04/25/17 06:59 03/26/17 08:00 40 MG Sodium Chloride (Nss 1000ml) 1,000 ml @ 75 mls/hr [id number] IV 03/25/17 19:58 04/24/17 19:57 03/26/17 08:25 75 MLS/HR Acetaminophen (Tylenol Tab) 650 mg Q4H PRN PO 03/25/17 20:00 04/24/17 19:59 Ondansetron HCl (Zofran Inj) 4 mg Q6H PRN IV 03/25/17 20:00 04/24/17 19:59 03/26/17 00:19 4 MG Oxycodone/ Acetaminophen (Percocet 5-325mg Tab) 1 tab Q4H PRN PO 03/25/17 20:15 04/08/17 20:14 03/26/17 01:37 1 TAB Albuterol/ Ipratropium 3 ml 3 ml QIDR INH 03/26/17 08:00 04/25/17 07:59 03/26/17 08:14 3 ML Levofloxacin/Prmx (Levaquin / D5W/ Premixed D5W) 150 ml @ 100 mls/hr Q24H IV 03/25/17 22:00 04/01/17 21:59 03/25/17 22:05 100 MLS/HR Levothyroxine Sodium (Synthroid Tab) 75 mcg DAILYBB PO 03/26/17 06:30 04/25/17 06:59 03/26/17 06:21 75 MCG Nicotine (Nicoderm Cq 14MG Patch) 1 patch QAM TD 03/26/17 09:00 04/25/17 08:59 Miscellaneous 1 ea 1 ea HS N/A 03/26/17 21:00 04/25/17 20:59 Methylprednisolone Sodium Succinate/ Syringe (Solu-Medrol IV/ Syringe) 0.64 ml @ 1.5 mls/min BID IV 03/26/17 09:00 04/25/17 08:59 03/26/17 08:25 1.5 MLS/MIN Morphine Sulfate (MoRPHine SULFATE INJ) 4 mg Q4H PRN IV 03/26/17 00:15 04/09/17 00:14 03/26/17 08:26 4 MG Ketorolac Tromethamine (Toradol Inj) 30 mg Q6H PRN IV 03/26/17 09:30 03/31/17 09:29 Pantoprazole Sodium (Protonix Tab) 40 mg QAM PO 03/27/17 09:00 04/26/17 08:59
[2017-03-26] MEDS ORDERED: DOCUSATE SODIUM/SENNA 50/8.6MG TAB PO ONE (09:44)
[2017-03-26] MEDS: KETOROLAC TROMETHAMINE 30 MG/ML VIAL IV PRN (14:07)
[2017-03-26] MEDS: LEVOFLOXACIN / D5W 750 MG in PREMIXED IN D5W 150 ML IV SCH (21:44)
[2017-03-27] VITALS (11 sets, daily range): BP systolic 107–135; BP diastolic 68–83; PULSE 72–95; TEMP 36.5–36.8; O2SAT 92–98
[2017-03-27] MEDS: LEVOTHYROXINE 75 MCG TAB PO SCH (05:14)
[2017-03-27] MEDS: MoRPHine SULFATE 4 MG/ML 1 ML CARP\\VIAL IV PRN ×2 (05:14→09:08)
[2017-03-27] MEDS: NICOTINE 14 MG/24 HR TDSY TD SCH (07:32)
[2017-03-27] MEDS: DOCUSATE SODIUM/SENNA 50/8.6MG TAB PO SCH (07:33)
[2017-03-27] MEDS: ENOXAPARIN 40 MG/0.4 ML SYR SC SCH (07:33)
[2017-03-27] MEDS: ALBUT/IPRATROP 3MG/0.5MG NEB 3 ML VIAL INH SCH ×4 (07:33→19:38)
[2017-03-27] MEDS: OXYCODONE/ACETAMINOPHEN 5-325 TAB PO PRN ×3 (07:34→21:12)
[2017-03-27] MEDS: PANTOprazole SOD 40 MG TAB PO SCH (07:34)
[2017-03-27] MEDS: METHYLPREDNISOLONE IV 40 MG in SYRINGE 0 ML IV SCH ×2 (07:42→21:07)
[2017-03-27] MEDS: SODIUM CHLORIDE 0.9% 1000ML 1,000 ML IV SCH (11:47)
[2017-03-27] MEDS: KETOROLAC TROMETHAMINE 30 MG/ML VIAL IV PRN ×2 (11:48→18:24)
[2017-03-27] MEDS ORDERED: MAGNESIUM HYDROXIDE SUSP 30 ML UDC PO ONE (17:00)
[2017-03-27] MEDS ORDERED: MAGNESIUM HYDROXIDE SUSP 30 ML UDC PO PRN (17:00)
--- NOTE | 2017-03-27 17:07 | Progress Note ---
Medicine Progress Note Date & Time of Visit: Mar 27, 2017 at 17:01. Subjective seen resting in bed, off oxygen states her breathing is improved compared to yesterday still has productive cough but getting less still has significant right lateral rib pain, but pain medications helping no BM yet but (+) flatus denies other symptoms Objective Last 8 Hrs Date Time Temp Pulse Resp B/P Pulse Ox O2 Delivery O2 Flow Rate FiO2 03/27/17 16:23 90 16 94 Room Air 03/27/17 15:13 36.8 92 16 107/68 92 Room Air 03/27/17 12:00 Room Air 03/27/17 11:33 36.5 86 18 135/75 93 Room Air 03/27/17 11:07 90 16 94 Room Air Physical Exam: General- oriented x 3, not in distress, speaks in sentences with no effort Eyes- anicteric Neck- no JVD Lungs- (+) mild scattered expiratory wheezing- improved compared to yesterday, good air entry Heart-normal rate, regular rhythm; no murmurs Abdomen- normal bowel sounds, soft, nontender Extremities- no pretibial edema, no calf tenderness; peripheral pulses intact Neuro- alert, oriented x 3; no gross focal deficits Skin- warm & dry Assessment & Plan 42 year old female with history of Smoking, Hypothyroidism, GERD, presenting with right flank pain. ACUTE HYPOXIC RESPIRATORY FAILURE LIKELY FROM MILD COPD EXACERBATION, RIGHT LATERAL RIB FRACTURE CT chest: No PE, ? Left lung pneumonia No pneumothorax on CT chest - off oxygen supplementation still has wheezing - continue Solumedrol 40mg BID, Nebs q6h, Levaquin Day 3 - pain control with PRN Toradol, Morphine continue IV fluids and Protonix, Senokot, add Miralax Incentive Spirometry RIGHT RIB FRACTURE Presented with worsening right flank pain since 2 weeks Likely secondary to right rib fracture - Renal US: unrevealing UA: essentially normal - blood cultures negative Incidental finding: tubular abnormality located between the rectum and coccyx. ? 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 smoking DVT Px: Lovenox SQ Code status: Full code Dispo pending lives at home Current Inpatient Medications: Current Inpatient Medications Medications (Trade) Dose Ordered Sig/Irving Route Start Time Stop Time Status Last Admin Dose Admin Ioversol (Optiray 320) 100 ml UD PRN IV 03/25/17 18:15 03/29/17 18:14 Enoxaparin Sodium 40 mg 40 mg Q24H SC 03/26/17 07:00 04/25/17 06:59 03/27/17 07:33 40 MG Sodium Chloride (Nss 1000ml) 1,000 ml @ 75 mls/hr [id number] IV 03/25/17 19:58 04/24/17 19:57 03/27/17 11:47 75 MLS/HR Acetaminophen (Tylenol Tab) 650 mg Q4H PRN PO 03/25/17 20:00 04/24/17 19:59 Ondansetron HCl (Zofran Inj) 4 mg Q6H PRN IV 03/25/17 20:00 04/24/17 19:59 03/26/17 00:19 4 MG Oxycodone/ Acetaminophen (Percocet 5-325mg Tab) 1 tab Q4H PRN PO 03/25/17 20:15 04/08/17 20:14 03/27/17 16:21 1 TAB Albuterol/ Ipratropium 3 ml 3 ml QIDR INH 03/26/17 08:00 04/25/17 07:59 03/27/17 16:23 3 ML Levofloxacin/Prmx (Levaquin / D5W/ Premixed D5W) 150 ml @ 100 mls/hr Q24H IV 03/25/17 22:00 04/01/17 21:59 03/26/17 21:44 100 MLS/HR Levothyroxine Sodium (Synthroid Tab) 75 mcg DAILYBB PO 03/26/17 06:30 04/25/17 06:59 03/27/17 05:14 75 MCG Nicotine (Nicoderm Cq 14MG Patch) 1 patch QAM TD 03/26/17 09:00 04/25/17 08:59 Miscellaneous 1 ea 1 ea HS N/A 03/26/17 21:00 04/25/17 20:59 Methylprednisolone Sodium Succinate/ Syringe (Solu-Medrol IV/ Syringe) 0.64 ml @ 1.5 mls/min BID IV 03/26/17 09:00 04/25/17 08:59 03/27/17 07:42 1.5 MLS/MIN Morphine Sulfate (MoRPHine SULFATE INJ) 4 mg Q4H PRN IV 03/26/17 00:15 04/09/17 00:14 03/27/17 09:08 4 MG Ketorolac Tromethamine (Toradol Inj) 30 mg Q6H PRN IV 03/26/17 09:30 03/31/17 09:29 03/27/17 11:48 30 MG Pantoprazole Sodium (Protonix Tab) 40 mg QAM PO 03/27/17 09:00 04/26/17 08:59 03/27/17 07:34 40 MG Senna/Docusate Sodium (Senokot S Tab) 1 tab QAM PO 03/27/17 09:00 04/26/17 08:59 03/27/17 07:33 1 TAB
[2017-03-27] MEDS: LEVOFLOXACIN / D5W 750 MG in PREMIXED IN D5W 150 ML IV SCH (21:07)
[2017-03-28] VITALS (9 sets, daily range): BP systolic 116–154; BP diastolic 69–97; PULSE 78–104; TEMP 36.4–36.6; O2SAT 90–98
[2017-03-28] MEDS: SODIUM CHLORIDE 0.9% 1000ML 1,000 ML IV SCH (00:31)
[2017-03-28] MEDS: KETOROLAC TROMETHAMINE 30 MG/ML VIAL IV PRN (00:31)
[2017-03-28] MEDS: LEVOTHYROXINE 75 MCG TAB PO SCH (06:03)
[2017-03-28] MEDS: OXYCODONE/ACETAMINOPHEN 5-325 TAB PO PRN ×3 (06:05→17:47)
[2017-03-28] MEDS: ENOXAPARIN 40 MG/0.4 ML SYR SC SCH (06:42)
[2017-03-28] MEDS: ALBUT/IPRATROP 3MG/0.5MG NEB 3 ML VIAL INH SCH ×4 (07:23→19:36)
[2017-03-28 07:49] LABS: HEMATOCRIT 36.2 % (37-47); MEAN CELL VOLUME 86.6 fL (80-100); MEAN CORPUSCULAR HEMOGLOBIN 28.2 pg (25-34); MEAN CORPUSCULAR HGB CONC 32.6 g/dl (32-36); MEAN PLATELET VOLUME 10.2 fL (7.4-10.4); PLATELET COUNT 281 K/uL (130-400); RED BLOOD COUNT 4.18 M/uL (4.2-5.4); WHITE BLOOD COUNT 17.41 K/uL (4.8-10.8)
[2017-03-28] MEDS: PANTOprazole SOD 40 MG TAB PO SCH (07:50)
[2017-03-28] MEDS: NICOTINE 14 MG/24 HR TDSY TD SCH (07:50)
[2017-03-28] MEDS: METHYLPREDNISOLONE IV 40 MG in SYRINGE 0 ML IV SCH ×2 (07:50→19:55)
[2017-03-28] MEDS: DOCUSATE SODIUM/SENNA 50/8.6MG TAB PO SCH (07:50)
[2017-03-28 08:15] LABS: BUN/CREATININE RATIO 25.7 (10-20); CREATININE 0.69 mg/dl (0.60-1.20); POTASSIUM 4.2 mmol/L (3.5-5.1)
[2017-03-28 08:34] LABS: CALCIUM 8.4 mg/dl (8.5-10.1)
[2017-03-28] MEDS ORDERED: NURSING VERBAL MED ORDER ONE (12:45)
--- NOTE | 2017-03-28 17:00 | Progress Note ---
Medicine Progress Note Date & Time of Visit: Mar 28, 2017 at 16:57. Subjective patient seen resting in bed states breathing continues to improved, coughing less still has pain on the right rib, slightly better no other symptoms Objective Last 8 Hrs Date Time Temp Pulse Resp B/P Pulse Ox O2 Delivery O2 Flow Rate FiO2 03/28/17 15:58 90 16 97 Room Air 03/28/17 15:45 93 Room Air 03/28/17 15:20 36.6 79 16 116/69 92 03/28/17 11:33 36.4 88 16 146/86 90 03/28/17 11:17 84 16 98 Room Air Physical Exam: General- oriented x 3, not in distress, speaks in sentences with no effort Eyes- anicteric Neck- no JVD Lungs- (+) mild scattered expiratory wheezing- less, good air entry b/l Heart-normal rate, regular rhythm; no murmurs Abdomen- normal bowel sounds, soft, nontender Extremities- no pretibial edema, no calf tenderness; peripheral pulses intact Neuro- alert, oriented x 3; no gross focal deficits Skin- warm & dry Laboratory Results: Last 24 Hours Test 03/28/17 06:23 White Blood Count 17.41 K/uL Red Blood Count 4.18 M/uL Hemoglobin 11.8 g/dL Hematocrit 36.2 % Mean Corpuscular Volume 86.6 fL Mean Corpuscular Hemoglobin 28.2 pg Mean Corpuscular Hemoglobin Concent 32.6 g/dl RDW Standard Deviation 52.5 fL RDW Coefficient of Variation 16.5 % Platelet Count 281 K/uL Mean Platelet Volume 10.2 fL Sodium Level 142 mmol/L Potassium Level 4.2 mmol/L Chloride Level 106 mmol/L Carbon Dioxide Level 27 mmol/L Anion Gap 9.0 mmol/L Blood Urea Nitrogen 18 mg/dl Creatinine 0.69 mg/dl Est Creatinine Clear Calc Drug Dose 97.6 ml/min Estimated GFR () 123.6 Estimated GFR (Non- 106.6 BUN/Creatinine Ratio 25.7 Random Glucose 113 mg/dl Calcium Level 8.4 mg/dl Assessment & Plan 42 year old female with history of Smoking, Hypothyroidism, GERD, presenting with right flank pain. ACUTE HYPOXIC RESPIRATORY FAILURE LIKELY FROM MILD COPD EXACERBATION, RIGHT LATERAL RIB FRACTURE CT chest: No PE, ? Left lung pneumonia No pneumothorax on CT chest - off oxygen supplementation wheezing improving - continue Solumedrol 40mg BID, Nebs q6h, Levaquin Day 4 - pain control with PRN Ibuprofen, Toradol, Percocet Incentive Spirometry - gradually improving RIGHT RIB FRACTURE Presented with worsening right flank pain since 2 weeks Likely secondary to right rib fracture - Renal US: unrevealing UA: essentially normal - blood cultures:negative Incidental finding: tubular abnormality located between the rectum and coccyx. ? 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 - no abdominal pain, changes with urination or BM - MRI with and without contrast as outpatient Hypothyroidism Continue levothyroxine Tobacco use disorder: Nicotine patch counseling case manager to quit smoking DVT Px: Lovenox SQ Code status: Full code Dispo pending lives at home Current Inpatient Medications: Current Inpatient Medications Medications (Trade) Dose Ordered Sig/Irving Route Start Time Stop Time Status Last Admin Dose Admin Ioversol (Optiray 320) 100 ml UD PRN IV 03/25/17 18:15 03/29/17 18:14 Enoxaparin Sodium (Lovenox Inj) 40 mg Q24H SC 03/26/17 07:00 04/25/17 06:59 03/28/17 06:42 40 MG Acetaminophen (Tylenol Tab) 650 mg Q4H PRN PO 03/25/17 20:00 04/24/17 19:59 Ondansetron HCl (Zofran Inj) 4 mg Q6H PRN IV 03/25/17 20:00 04/24/17 19:59 03/26/17 00:19 4 MG Oxycodone/ Acetaminophen (Percocet 5-325mg Tab) 1 tab Q4H PRN PO 03/25/17 20:15 04/08/17 20:14 03/28/17 10:56 1 TAB Albuterol/ Ipratropium 3 ml 3 ml QIDR INH 03/26/17 08:00 04/25/17 07:59 03/28/17 15:58 3 ML Levofloxacin/Prmx (Levaquin / D5W/ Premixed D5W) 150 ml @ 100 mls/hr Q24H IV 03/25/17 22:00 04/01/17 21:59 03/27/17 21:07 100 MLS/HR Levothyroxine Sodium (Synthroid Tab) 75 mcg DAILYBB PO 03/26/17 06:30 04/25/17 06:59 03/28/17 06:03 75 MCG Nicotine (Nicoderm Cq 14MG Patch) 1 patch QAM TD 03/26/17 09:00 04/25/17 08:59 Miscellaneous 1 ea 1 ea HS N/A 03/26/17 21:00 04/25/17 20:59 Methylprednisolone Sodium Succinate/ Syringe (Solu-Medrol IV/ Syringe) 0.64 ml @ 1.5 mls/min BID IV 03/26/17 09:00 04/25/17 08:59 03/28/17 07:50 1.5 MLS/MIN Morphine Sulfate (MoRPHine SULFATE INJ) 4 mg Q4H PRN IV 03/26/17 00:15 04/09/17 00:14 03/27/17 09:08 4 MG Ketorolac Tromethamine (Toradol Inj) 30 mg Q6H PRN IV 03/26/17 09:30 03/31/17 09:29 03/28/17 00:31 30 MG Pantoprazole Sodium (Protonix Tab) 40 mg QAM PO 03/27/17 09:00 04/26/17 08:59 03/28/17 07:50 40 MG Senna/Docusate Sodium (Senokot S Tab) 1 tab QAM PO 03/27/17 09:00 04/26/17 08:59 03/28/17 07:50 1 TAB Magnesium Hydroxide (Milk Of Magnesia Susp) 30 ml Q6H PRN PO 03/27/17 17:00 04/26/17 16:59 03/28/17 02:24 30 ML
[2017-03-28] MEDS: TRAMADOL HCL 50 MG TAB PO PRN (19:54)
[2017-03-28] MEDS: LEVOFLOXACIN / D5W 750 MG in PREMIXED IN D5W 150 ML IV SCH (21:21)
[2017-03-28] MEDS: IBUPROFEN 600 MG TAB PO PRN (21:21)
[2017-03-29] VITALS (8 sets, daily range): BP systolic 127–135; BP diastolic 76–86; PULSE 70–104; TEMP 36.5–36.8; O2SAT 94–98
[2017-03-29] MEDS: OXYCODONE/ACETAMINOPHEN 5-325 TAB PO PRN ×2 (03:35→12:43)
[2017-03-29] MEDS: LEVOTHYROXINE 75 MCG TAB PO SCH (06:33)
[2017-03-29] MEDS: TRAMADOL HCL 50 MG TAB PO PRN (06:33)
[2017-03-29] MEDS: ENOXAPARIN 40 MG/0.4 ML SYR SC SCH (06:34)
[2017-03-29] MEDS: ALBUT/IPRATROP 3MG/0.5MG NEB 3 ML VIAL INH SCH ×2 (07:57→11:21)
[2017-03-29 07:58] LABS: BLOOD UREA NITROGEN 14 mg/dl (7-18); BUN/CREATININE RATIO 21.9 (10-20); CALCIUM 8.3 mg/dl (8.5-10.1); CARBON DIOXIDE 26 mmol/L (21-32); CHLORIDE 106 mmol/L (98-107); CREATININE 0.65 mg/dl (0.60-1.20); GLUCOSE 103 mg/dl (70-99); SODIUM 139 mmol/L (136-145)
[2017-03-29] MEDS: PANTOprazole SOD 40 MG TAB PO SCH (08:17)
[2017-03-29] MEDS: METHYLPREDNISOLONE IV 40 MG in SYRINGE 0 ML IV SCH (08:17)
[2017-03-29] MEDS: DOCUSATE SODIUM/SENNA 50/8.6MG TAB PO SCH (08:17)
[2017-03-29] MEDS: NICOTINE 14 MG/24 HR TDSY TD SCH (08:17)
[2017-03-29] MEDS: IPRATROPIUM BROMIDE/ALBUTEROL respimat INH INH SCH ×2 (14:36→17:10)
--- NOTE | 2017-03-29 16:29 | Progress Note ---
Medicine Progress Note Date & Time of Visit: Mar 29, 2017 at 16:19. Subjective patient seen resting in bed, comfortable continues to feel improved no dyspnea cough is less has moderate right rib pain, also improving ambulates with no problems denies other symptoms Objective Last 8 Hrs Date Time Temp Pulse Resp B/P Pulse Ox O2 Delivery O2 Flow Rate FiO2 03/29/17 16:00 Room Air 03/29/17 15:50 36.8 92 18 127/76 94 Room Air 03/29/17 12:27 36.5 85 20 130/81 94 03/29/17 12:00 Room Air 03/29/17 11:21 72 18 98 Room Air Physical Exam: General- oriented x 3, not in distress, speaks in sentences with no effort Eyes- anicteric Neck- no JVD Lungs- mild intermittent expiratory wheeze bilaterally, good air entry, no rales Heart-normal rate, regular rhythm; no murmurs Abdomen- normal bowel sounds, soft, nontender Extremities- no pretibial edema, no calf tenderness; peripheral pulses intact Neuro- alert, oriented x 3; no gross focal deficits Skin- warm & dry Laboratory Results: Last 24 Hours Test 03/28/17 16:55 03/29/17 06:25 03/29/17 08:30 Bedside Glucose 121 mg/dl Sodium Level 139 mmol/L Potassium Level mmol/L 4.0 mmol/L Chloride Level 106 mmol/L Carbon Dioxide Level 26 mmol/L Anion Gap 7.0 mmol/L Blood Urea Nitrogen 14 mg/dl Creatinine 0.65 mg/dl Est Creatinine Clear Calc Drug Dose 103.6 ml/min Estimated GFR () 126.0 Estimated GFR (Non- 108.7 BUN/Creatinine Ratio 21.9 Random Glucose 103 mg/dl Calcium Level 8.3 mg/dl Assessment & Plan 42 year old female with history of Smoking, Hypothyroidism, GERD, presenting with right flank pain. ACUTE HYPOXIC RESPIRATORY FAILURE LIKELY FROM MILD COPD EXACERBATION, RIGHT LATERAL RIB FRACTURE CT chest: No PE, questionable Left lung pneumonia No pneumothorax on CT chest - placed on 2-3 L o2 supplement via NC - given Solumedrol taper, Nebs q6h, Levaquin 500mg x 5 days - improved gradually off oxygen supplementation wheezing improved - pain control with PRN Ibuprofen, Toradol, Percocet Incentive Spirometry -- overall improved discharge plan: Prednisone taper Advair BID Combivent q6h Albuterol PRN ff up with PCP on Friday RIGHT RIB FRACTURE Presented with worsening right flank pain since 2 weeks - Likely secondary to right rib fracture - CT chest: 1. No pulmonary emboli identified. 2. Acute nondisplaced fracture of the lateral right ninth rib. No pneumothorax. 3. Scattered tree-in-bud opacities within the left lung which have improved since exam February 07, 2017. The findings suggest a mild infectious process. - Renal US: unrevealing UA: essentially normal blood cultures:negative Incidental finding: tubular abnormality located between the rectum and coccyx. ? 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 Acute nondisplaced fracture of the lateral right ninth rib. 2. No acute process within the abdomen or pelvis. 3. Left colon diverticulosis without evidence for acute diverticulitis. 5. 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 This is probably benign but is indeterminate and a follow-up nonemergent MRI of the pelvis with and without contrast is recommended. - no abdominal pain, changes with urination or BM - MRI with and without contrast as outpatient Hypothyroidism Continue levothyroxine Tobacco use disorder: Nicotine patch counselled to quit smoking DVT Px: Lovenox SQ given Code status: Full code Dispo d/c home today ff up with PCP on Saturday April 01, 2017 at 1245pm. Current Inpatient Medications: Current Inpatient Medications Medications (Trade) Dose Ordered Sig/Irving Route Start Time Stop Time Status Last Admin Dose Admin Ioversol (Optiray 320) 100 ml UD PRN IV 03/25/17 18:15 03/29/17 18:14 Enoxaparin Sodium (Lovenox Inj) 40 mg Q24H SC 03/26/17 07:00 04/25/17 06:59 03/29/17 06:34 40 MG Acetaminophen (Tylenol Tab) 650 mg Q4H PRN PO 03/25/17 20:00 04/24/17 19:59 Ondansetron HCl (Zofran Inj) 4 mg Q6H PRN IV 03/25/17 20:00 04/24/17 19:59 03/26/17 00:19 4 MG Oxycodone/ Acetaminophen 1 tab 1 tab Q4H PRN PO 03/25/17 20:15 04/08/17 20:14 03/29/17 12:43 1 TAB Levofloxacin/Prmx (Levaquin / D5W/ Premixed D5W) 150 ml @ 100 mls/hr Q24H IV 03/25/17 22:00 04/01/17 21:59 03/28/17 21:21 100 MLS/HR Levothyroxine Sodium (Synthroid Tab) 75 mcg DAILYBB PO 03/26/17 06:30 04/25/17 06:59 03/29/17 06:33 75 MCG Nicotine (Nicoderm Cq 14MG Patch) 1 patch QAM TD 03/26/17 09:00 04/25/17 08:59 Miscellaneous 1 ea 1 ea HS N/A 03/26/17 21:00 04/25/17 20:59 Methylprednisolone Sodium Succinate/ Syringe (Solu-Medrol IV/ Syringe) 0.64 ml @ 1.5 mls/min BID IV 03/26/17 09:00 04/25/17 08:59 03/29/17 08:17 1.5 MLS/MIN Morphine Sulfate (MoRPHine SULFATE INJ) 4 mg Q4H PRN IV 03/26/17 00:15 04/09/17 00:14 03/27/17 09:08 4 MG Pantoprazole Sodium (Protonix Tab) 40 mg QAM PO 03/27/17 09:00 04/26/17 08:59 03/29/17 08:17 40 MG Senna/Docusate Sodium (Senokot S Tab) 1 tab QAM PO 03/27/17 09:00 04/26/17 08:59 03/29/17 08:17 1 TAB Magnesium Hydroxide (Milk Of Magnesia Susp) 30 ml Q6H PRN PO 03/27/17 17:00 04/26/17 16:59 03/28/17 02:24 30 ML Tramadol HCl (Ultram Tab) 50 mg Q6H PRN PO 03/28/17 17:00 04/27/17 16:59 03/29/17 06:33 50 MG Ibuprofen (Motrin Tab) 600 mg TID PRN PO 03/28/17 17:00 04/27/17 16:59 03/28/17 21:21 600 MG Albuterol/ Ipratropium (Combivent Respimat Inh) 1 puffs QID INH 03/29/17 14:00 04/28/17 13:59 03/29/17 14:36 1 PUFFS
[2017-03-29] MEDS ORDERED: SENN8.6T7 PO (16:37)
[2017-03-29] MEDS ORDERED: SYN75 PO (16:37)
[2017-03-29] MEDS ORDERED: MTR600X PO (16:37)
[2017-03-29] MEDS ORDERED: PRED10TA PO (16:37)
[2017-03-29] MEDS ORDERED: ADVIN25050 INH (16:37)
[2017-03-29] MEDS ORDERED: IPRA1AER2 INH (16:37)
--- NOTE | 2017-03-29 16:39 | Discharge Instructions ---
Discharge Instructions Date of Service Mar 29, 2017. Admission Reason for Admission: Flank Pain Discharge Discharge Diagnosis / Problem: RIGHT RIB PAIN Discharge Goals Goal(s): Diagnostic testing Activity Recommendations Activity Limitations: as noted below (NO HEAVY EXERTION UNTIL RE-EVALUATED BY PRIMARY CARE PHYSICIAN) Instructions / Follow-Up Instructions / Follow-Up PLEASE REVIEW YOUR NEW MEDICATION LIST AND FOLLOW INSTRUCTIONS CAREFULLY. NO DRIVING WHILE TAKING NORCO. TAKE IBUPROFEN WITH FOOD. ENSURE ADEQUATE DAILY FLUID INTAKE. NO SMOKING. CONTINUE TO USE INCENTIVE SPIROMETRY. CALL PRIMARY CARE PHYSICIAN OR RETURN TO ER IMMEDIATELY IF WITH RECURRENCE OF SYMPTOMS, INCREASING SHORTNESS OF BREATH, COUGH, FEVER/CHILLS, INCREASING PAIN. FOLLOW UP WITH DR. MUNOZ ON SATURDAY APRIL 01, 2017 AT 12:45PM. Current Hospital Diet Patient's current hospital diet: AHA Diet (Heart Healthy) Discharge Diet Recommended Diet: AHA Diet (Heart Healthy) Pending Studies Studies pending at discharge: yes List of pending studies: MRI ABDOMEN AND PELVIS Medical Emergencies . Who to Call and When: Medical Emergencies: If at any time you feel your situation is an emergency, please call 911 immediately. . Non-Emergent Contact Non-Emergency issues call your: Primary Care Provider Call Non-Emergent contact if: you have a fever, your pain is not controlled, you have any medication questions . Past History Medical & Surgical History: (1) Calcific tendinitis of left shoulder (2) Pneumonia involving left lung (3) Hypoxia (4) Right rib fracture (5) Bronchospasm (6) Flank pain (7) TOBACCO USE DISORDER (8) LUMBAGO (9) HYPOTHYROIDISM NOS (10) ESOPHAGEAL REFLUX . "Provider Documentation" section prepared by Abelardo Esparza. . VTE Core Measure Inpt VTE Proph given/why not?: Enoxaparin (Lovenox)SQ [place] Drug Monitoring Program Search Results: patient reviewed within database, no issues identified
[2017-03-29] MEDS: IBUPROFEN 600 MG TAB PO PRN (17:10)
--- NOTE | 2017-03-29 17:18 | Discharge Summary ---
Discharge Summary Date of Service Mar 29, 2017. Discharge Summary Admission Date: Mar 25, 2017 at 20:02 Discharge Date: Mar 29, 2017 Discharge Disposition: Home Principal Diagnosis: ACUTE HYPOXIC RESPIRATORY FAILURE LIKELY FROM MILD COPD EXACERBATION, RIGHT LATERAL RIB FRACTURE Secondary Diagnoses/Problems: Please refer to hospital course below for further evaluation. Procedures: CT ANGIOGRAPHY OF THE CHEST, PULMONARY EMBOLUS PROTOCOL CLINICAL HISTORY: Right-sided chest pain. Right flank pain. COMPARISON STUDY: Chest radiograph February 07, 2017. TECHNIQUE: Following IV administration of 93 mL of Optiray-320, helical axial images of the chest were obtained utilizing the pulmonary embolus protocol. Maximal intensity projections and sagittal and coronal reformats were viewed on an independent 3D workstation. IV contrast was administered without complication. CT DOSE: 1045.06 mGy.cm FINDINGS: No pulmonary emboli are identified. There is no evidence of thoracic aortic dissection. The size of the heart is normal. There is no pericardial effusion. There is no pneumothorax or pleural effusion. There are scattered mild tree-in-bud opacities within the left lung which have improved since exam of February 07, 2017. There is an acute nondisplaced fracture of the lateral right ninth rib. IMPRESSION: 1. No pulmonary emboli identified. 2. Acute nondisplaced fracture of the lateral right ninth rib. No pneumothorax. 3. Scattered tree-in-bud opacities within the left lung which have improved since exam February 07, 2017. The findings suggest a mild infectious process. CT OF THE ABDOMEN AND PELVIS WITH CONTRAST CLINICAL HISTORY: Right flank pain. COMPARISON STUDY: KUB performed earlier today. TECHNIQUE: Following IV administration of 93 mL of Optiray-320, axial images of the abdomen and pelvis were obtained from the lung bases to the proximal femurs. Images were reviewed in the axial, sagittal, and coronal planes. IV contrast was administered without complication. The chest CT will be reported separately. FINDINGS: There is an acute nondisplaced fracture of the lateral right ninth rib. No pneumatosis, free air or portal venous gas is present. Liver, spleen, adrenal glands, kidneys and pancreas are unremarkable. There is no hydronephrosis. There is eventration of the anterior abdominal wall with a small fat-containing umbilical hernia. There is left colon diverticulosis without evidence for acute diverticulitis. There is no lymphadenopathy. No significant skeletal abnormality is are identified. Follicles are noted within the ovaries. The appendix is normal. There is no evidence for a bowel obstruction. There is a 3.3 x 2.8 cm tubular abnormality located between the rectum and the coccyx. This is likely congenital. IMPRESSION: 1. Acute nondisplaced fracture of the lateral right ninth rib. 2. No acute process within the abdomen or pelvis. 3. Left colon diverticulosis without evidence for acute diverticulitis. 5. 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 This is probably benign but is indeterminate and a follow-up nonemergent MRI of the pelvis with and without contrast is recommended. ULTRASOUND KIDNEYS AND BLADDER CLINICAL HISTORY: Flank pain. Assess for renal calculi. COMPARISON STUDY: Abdominal CT dated 03/25/2017. TECHNIQUE: Real-time, grayscale, and color flow sonography of the kidneys and bladder is performed. Images are reviewed in the transverse and longitudinal planes. FINDINGS: Kidneys: The kidneys are normal in size. The right kidney measures 11.4 x 4.8 x 5.0 cm and the left kidney measures 10.1 x 5.4 x 4.2 cm. There is no hydronephrosis. No shadowing renal calculi are identified. There is no sonographic evidence of contour deforming renal mass lesion. The lower pole of the left kidney appears slightly heterogeneous. There is no corresponding lesion seen on today's CT scan and this is of doubtful significance. No perinephric fluid is identified. Bladder: The bladder is decompressed and grossly unremarkable. Bilateral ureteral jets were seen. IMPRESSION: 1. The kidneys are normal in size and without hydronephrosis. 2. There are no renal calculi identified as clinically queried. Note that this was better assessed on today's CT scan. 3. The bladder was decompressed and grossly unremarkable. Pending Studies/Follow-Up: MRI of the abdomen and pelvis; Please refer to hospital course below Medication Reconciliation New Medications: Fluticasone Prop/Salmeterol (Advair Diskus 250-50 Mcg/Dose) 14 Puff/1 Inhaler Aerp 1 PUFF INH BID for 30 Days, #1 INHA 1 Refill Prednisone Tab (Prednisone) 10 Mg Tab 10 MG PO UD, #15 TAB take 4 tabs po daily x 2 days, then take 2 tabs po daily x 2 days, then take 1 tab po daily x 2 days, then take 1/2 tab po daily x 2 days, then STOP Ibuprofen (Ibuprofen) 600 Mg Tab 600 MG PO TID PRN for pain, #15 TAB with full stomach Ipratropium-Albuterol (Combivent Respimat) 1 Aer Aer 1 PUFFS INH QID for 7 Days, #1 INHA 1 Refill Levothyroxine Sodium (Synthroid) 75 Mcg Tab 75 MCG PO DAILYBB for 30 Days, TAB Sennosides-Docusate Sodium (Senokot S) 1 Tab Tab 1 TAB PO QAM, #10 TAB take 1 tab daily while taking Nye Continued Medications: Albuterol Sulfate (Proair Respiclick) 108 Mcg/Act Aer 1 PUFF PO BID PRN for SOB/Wheezing, #9 Hydrocodone/Acetaminophen 5MG/325MG (Nye 5MG/325MG) Tab 1 TABLET PO Q6 PRN for Pain, TAB PRN PAIN Admission Information HPI (per Admitting provider): Patient is a 42yr old female with PMH of Hypothyroidism, lumbago, GERD and Tobacco use disorder presents for evaluation of worsening right flank pain which started 2 weeks ago. Patient was recent diagnosis of pneumonia and bronchitis one month ago and since then has persistent cough. States having clear expectoration which is resolving per patient. Patient was evaluated by her PCP last for foggy urine and hematuria and had renal USD which showed no kidney stones but was told her right kidney was larger than her left and she had hydronephrosis per patient. She also states having low grade fever intermittently. Today, patient heard a popping sound on her right side after a coughing episode and since then has a worsening right flank pain which increases with movement. Denies any history of fall, chest pain, SOB, palpitations, dizziness, urinary frequency or hematuria, abd pain, diarrhea but states having wheezing. Denies any other relevant history. Physical Exam (per Admitting): General Appearance: WD/WN, + mild distress (Secondary to pain) Head: normocephalic, atraumatic Eyes: normal inspection, PERRL, EOMI ENT: normal ENT inspection, hearing grossly normal Neck: supple, trachea midline Respiratory/Chest: no respiratory distress, no accessory muscle use, + wheezing, + pertinent finding (Decreased breath sounds) Cardiovascular: regular rate, rhythm, no edema, no murmur, + tachycardia Abdomen/GI: normal bowel sounds, soft, + pertinent finding (Right flank tenderness) Back: normal inspection, + right CVA tenderness Extremities/Musculoskelatal: normal inspection, no calf tenderness, no pedal edema Neurologic/Psych: 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 ACUTE HYPOXIC RESPIRATORY FAILURE LIKELY FROM MILD COPD EXACERBATION, RIGHT LATERAL RIB FRACTURE CT chest: No PE, questionable Left lung pneumonia No pneumothorax on CT chest - placed on 2-3 L o2 supplement via NC - given Solumedrol taper, Nebs q6h, Levaquin 500mg x 5 days - improved gradually off oxygen supplementation wheezing improved - pain control with PRN Ibuprofen, Toradol, Percocet Incentive Spirometry -- overall improved discharge plan: Prednisone taper Advair BID Combivent q6h Albuterol PRN ff up with PCP on Friday RIGHT RIB FRACTURE Presented with worsening right flank pain since 2 weeks - Likely secondary to right rib fracture - CT chest: 1. No pulmonary emboli identified. 2. Acute nondisplaced fracture of the lateral right ninth rib. No pneumothorax. 3. Scattered tree-in-bud opacities within the left lung which have improved since exam February 07, 2017. The findings suggest a mild infectious process. - Renal US: unrevealing UA: essentially normal blood cultures:negative Incidental finding: tubular abnormality located between the rectum and coccyx. ? 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 Acute nondisplaced fracture of the lateral right ninth rib. 2. No acute process within the abdomen or pelvis. 3. Left colon diverticulosis without evidence for acute diverticulitis. 5. 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 This is probably benign but is indeterminate and a follow-up nonemergent MRI of the pelvis with and without contrast is recommended. - no abdominal pain, changes with urination or BM - MRI with and without contrast as outpatient Hypothyroidism Continue levothyroxine Tobacco use disorder: Nicotine patch counselled to quit smoking Dispo d/c home ff up with PCP on Saturday April 01, 2017 at 1245pm. Total time spent on discharge = 30 minutes This includes examination of the patient, discharge planning, medication reconciliation, and communication with other providers. Discharge Instructions Discharge Instructions Date of Service Mar 29, 2017. Admission Reason for Admission: Flank Pain Discharge Discharge Diagnosis / Problem: RIGHT RIB PAIN Discharge Goals Goal(s): Diagnostic testing Activity Recommendations Activity Limitations: as noted below (NO HEAVY EXERTION UNTIL RE-EVALUATED BY PRIMARY CARE PHYSICIAN) Instructions / Follow-Up Instructions / Follow-Up PLEASE REVIEW YOUR NEW MEDICATION LIST AND FOLLOW INSTRUCTIONS CAREFULLY. NO DRIVING WHILE TAKING NORCO. TAKE IBUPROFEN WITH FOOD. ENSURE ADEQUATE DAILY FLUID INTAKE. NO SMOKING. CONTINUE TO USE INCENTIVE SPIROMETRY. CALL PRIMARY CARE PHYSICIAN OR RETURN TO ER IMMEDIATELY IF WITH RECURRENCE OF SYMPTOMS, INCREASING SHORTNESS OF BREATH, COUGH, FEVER/CHILLS, INCREASING PAIN. FOLLOW UP WITH DR. MUNOZ ON SATURDAY APRIL 01, 2017 AT 12:45PM. Current Hospital Diet Patient's current hospital diet: AHA Diet (Heart Healthy) Discharge Diet Recommended Diet: AHA Diet (Heart Healthy) Pending Studies Studies pending at discharge: yes List of pending studies: MRI ABDOMEN AND PELVIS Medical Emergencies . Who to Call and When: Medical Emergencies: If at any time you feel your situation is an emergency, please call 911 immediately. . Non-Emergent Contact Non-Emergency issues call your: Primary Care Provider Call Non-Emergent contact if: you have a fever, your pain is not controlled, you have any medication questions . Past History Medical & Surgical History: (1) Calcific tendinitis of left shoulder (2) Pneumonia involving left lung (3) Hypoxia (4) Right rib fracture (5) Bronchospasm (6) Flank pain (7) TOBACCO USE DISORDER (8) LUMBAGO (9) HYPOTHYROIDISM NOS (10) ESOPHAGEAL REFLUX . "Provider Documentation" section prepared by Abelardo Esparza. . VTE Core Measure Inpt VTE Proph given/why not?: Enoxaparin (Lovenox)SQ [place] Drug Monitoring Program Search Results: patient reviewed within database, no issues identified
== END 2017-03-29 17:45 | disposition home or self-care (01) | DRG 189 ==
LOC: ENRESERVTM → ENRESERVDT → C.EDB 15:43 → C.MED 20:02
PROVIDERS: ADMIT Internal Medicine; ATTEND Internal Medicine
DX: J96.01 Acute respiratory failure with hypoxia (principal); J18.9 Pneumonia, unspecified organism; J44.0 Chronic obstructive pulmonary disease with (acute) lower respiratory infection; J44.1 Chronic obstructive pulmonary disease with (acute) exacerbation; S22.31XA Fracture of one rib, right side, initial encounter for closed fracture; X58.XXXA Exposure to other specified factors, initial encounter; R93.8 Abnormal findings on diagnostic imaging of other specified body structures; E03.9 Hypothyroidism, unspecified; F17.200 Nicotine dependence, unspecified, uncomplicated; Z87.01 Personal history of pneumonia (recurrent)

== ENCOUNTER → 2017-09-02 | Outpatient (CLI) | payer OTHER ==
[~2017-09-02] MED LIST changes: +ADVIN25050 INH; +ALBU18002 PO; -AZIT250T PO; +HYDR-5688 PO; +IPRA1AER2 INH; +MTR600X PO; +PRED10TA PO; +SENN8.6T7 PO; +SYN75 PO
--- NOTE | 2017-09-02 15:30 | MAMMOGRAPHY REPORT ---
BILATERAL DIGITAL DIAGNOSTIC MAMMOGRAM TOMOSYNTHESIS WITH CAD AND TARGETED LEFT ULTRASOUND: 09/02/2017 CLINICAL HISTORY: 42-year-old woman presents for bilateral screening mammography. She is late to fol low-up for repeat spot magnification views in the right breast to assess multiple clusters of benign- appearing microcalcifications are just a history of prior benign left breast ultrasound guided core b iopsy. TECHNIQUE: Bilateral CC and MLO 2-D and tomosynthesis images, spot magnification right CC and ML vie ws were obtained. Current study was also evaluated with a Computer Aided Detection (CAD) system. COMPARISON: Comparison is made to exams dated: 08/26/2016 mammogram, 02/22/2016 mammogram, 08/30/2015 a spiration, 08/30/2015 mammogram, and 08/24/2015 mammogram - [facility]. BREAST COMPOSITION: The tissue of both breasts is heterogeneously dense, which may obscure small mas ses. FINDINGS: There is a stable ribbon-shaped biopsy marker clip within a stable circumscribed 10 mm mass in the lower inner middle to posterior left breast. There is increased size of a partially circumsc ribed mass with associated microcalcification in the 12:00 anterior left breast, currently measuring 8 mm, previously measured 6 mm. Further evaluation with ultrasound was performed. The spot magnific ation views of the right breast demonstrate at least 4 groupings of punctate and amorphous microcalci fications that appears similar in number, configuration and distribution comparing back to prior spot magnification views dating back to 08/24/2015 and these microcalcifications most likely represent be nign fibrocystic change. However, another 12 month follow-up diagnostic mammogram including spot mag nification views is recommended to ensure longer stability. There are decreasing circumscribed rianna s in the right upper outer quadrant, confirming benignity. No focal area of architectural distortion, suspicious spiculated or irregular mass or new suspicious calcifications are identified bilaterally. Targeted ultrasound was performed in the 12:00 left breast. In the 11:30 periareolar axis, there is a cluster of cysts containing internal calcifications, likely representing the mammographic mass with associated calcifications in question. This measures approximately 5.0 x 6.1 x 7.3 mm and is benign . IMPRESSION: ACR-BI-RADS CATEGORY 3: PROBABLY BENIGN, TARGETED ULTRASOUND ACR-BI-RADS CATEGORY 3: PRO BABLY BENIGN 1. There are at least 4 stable groupings/clusters of punctate and amorphous microcalcifications in t he right breast, that are unchanged dating back to 08/20/2015. These most likely represent benign fi brocystic changes, but another 12 month follow-up diagnostic mammogram according spot magnification v iews is recommended to ensure at least 3 years of stability. 2. There are decreasing circumscribed masses in the upper outer quadrant of the right breast, confir chasity benignity, most likely fluctuating cysts. 3. An increasingly prominent/increased mass with associated clustered calcification in the 12:00 ant erior left breast correlates with a benign cyst cluster with internal calcification on ultrasound. 4. No new suspicious findings identified in the left breast mammographically or targeted ultrasound. These results and recommendations were discussed with the patient at the time of the exam. Follow-up bilateral diagnostic mammograms and right spot magnification views are recommended in 12 months. Approximately 10% of breast cancers are not detected with mammography. A negative mammographic report should not delay biopsy if a clinically suggestive mass is present. Elis Solis M.D. ay/:09/02/2017 13:34:28 Rail Car Driver: Syeda HOLDER)(Danny), [facility] letter sent: Follow Up Recommended 3 BI-RADS Code: ACR-BI-RADS Category 3: Probably Benign Ultrasound BI-RADS: ACR-BI-RADS Category 3: Pr obably Benign
== END | disposition home or self-care (01) ==
LOC: C.MAMM 08:46
PROVIDERS: ATTEND Surgery
DX: R92.0 Mammographic microcalcification found on diagnostic imaging of breast (principal); N63.0 Unspecified lump in unspecified breast

== ENCOUNTER 2018-02-22 21:15 | Emergency (ER) | payer OTHER ==
[~2018-02-22] VITALS: Ht 147.3 cm; Wt 89.7 kg
[~2018-02-22 21:15] MED LIST changes: -PRED10TA PO
[2018-02-22 21:19] VITALS: TEMP 36.5; Ht 147.3 cm; Wt 89.7 kg
[2018-02-22] MEDS ORDERED: ADVIN25/60 INH (21:39)
[2018-02-22] MEDS ORDERED: IPRA1AER2 INH (21:39)
--- NOTE | 2018-02-22 22:00 | DIAGNOSTIC IMAGING REPORT ---
R PELVIS/UNILATERAL HIP 2-3VIEWS CLINICAL HISTORY: 43 years-old Female presenting with Right hip pain. TECHNIQUE: Single frontal view the pelvis and frontal and frog-leg lateral views of the right hip were obtained. COMPARISON: Comparison made to CT from 03/25/2017. FINDINGS: Sacrum joints, pubic symphysis and hip joints intact. Bony pelvis intact. Mild degenerative changes of the hip joints. Joint spaces preserved. Specifically, no right femoral neck fracture. IMPRESSION: 1. No acute osseous injury of the pelvis or right hip. 2. Mild degenerative changes of the hips. Electronically signed by: Jerome Leonardo M.D. 02/22/2018 9:59 PM Dictated Date/Time: 02/22/2018 9:57 PM
[2018-02-22] MEDS ORDERED: PRED20TA2 PO (22:18)
[2018-02-22 22:32] VITALS: BP 137/85; PULSE 101; O2SAT 94
--- NOTE | 2018-02-22 22:43 | EMERGENCY ROOM VISIT NOTE ---
History First contact with patient: 21:21 Chief Complaint: LEG PAIN,LEG INJURY Stated Complaint: RIGHT LEG PAIN History of Present Illness The patient is a 43 year old female who presents to the Emergency Room with complaints of right hip pain for the past 4-5 days. The patient does not have distinct injury or trauma to explain her symptoms. She has been taking Tylenol without any improvement. She does not have a history of chronic hip pain. No back pain or paresthesias. No fevers. She is using the bathroom is normal. Patient is able to ambulate despite her discomfort which she currently rates a 6 /10. Review of Systems More than 10 systems were reviewed and otherwise negative with the exception of history of present illness. Past Medical/Surgical History Medical Problems: (1) ESOPHAGEAL REFLUX (2) Flank pain (3) HYPOTHYROIDISM NOS (4) LUMBAGO (5) TOBACCO USE DISORDER Family History No pertinent family history Social History Smoking Status: Never Smoker Alcohol Use: none Drug Use: none Marital Status: Housing Status: lives with family Occupation Status: employed Current/Historical Medications Scheduled Fluticasone Prop/Salmeterol (Advair Diskus 250/50 60 Dose), 1 PUFF INH BID Ipratropium-Albuterol (Combivent Respimat), 1 PUFFS INH QID Prednisone (Prednisone Tab), 2 TAB PO DAILY Scheduled PRN Albuterol Sulfate (Proair Respiclick), 1 PUFF PO BID PRN for SOB/Wheezing Physical Exam Vital Signs Date Time Temp Pulse Resp B/P (MAP) Pulse Ox O2 Delivery O2 Flow Rate FiO2 02/22/18 22:32 101 18 137/85 94 02/22/18 21:19 36.5 101 18 137/85 94 Room Air Physical Exam VITALS: Vitals are noted on the nurse's note and reviewed by myself. Vital signs stable. GENERAL: Well-developed, well-nourished, white female, who is in no acute distress and resting comfortably. Patient is cooperative with the examination. HEART: Regular rate and rhythm without murmurs gallops or rubs. LUNGS: Clear to auscultation bilaterally without wheezes, rales or rhonchi. No retractions or accessory muscle use. MUSCULOSKELETAL: Mild tenderness is appreciated along the proximal aspect of the right femur. Patient has increased tenderness with internal and external rotation at the right hip, although she is able to perform this. The leg is not shortened or rotated. No low back tenderness noted. No saddle paresthesias. Neurovascular status is intact distally. No rashes noted. Medical Decision & Procedures ER Provider Diagnostic Interpretation: R PELVIS/UNILATERAL HIP 2-3VIEWS CLINICAL HISTORY: 43 years-old Female presenting with Right hip pain. TECHNIQUE: Single frontal view the pelvis and frontal and frog-leg lateral views of the right hip were obtained. COMPARISON: Comparison made to CT from 03/25/2017. FINDINGS: Sacrum joints, pubic symphysis and hip joints intact. Bony pelvis intact. Mild degenerative changes of the hip joints. Joint spaces preserved. Specifically, no right femoral neck fracture. IMPRESSION: 1. No acute osseous injury of the pelvis or right hip. 2. Mild degenerative changes of the hips. ED Course Physical exam and history were performed. Nursing notes, EMR, and Medication List were personally reviewed. Patient appears to have right hip pain for the past several days. She is able to ambulate. Certain motions on examination do exacerbate her pain. X-ray was performed and was as above. She does not appear to have distinct fracture or dislocation per my radiology's interpretation. She does have some degenerative findings, which are likely age-appropriate. The patient appears well for discharge home. I will provide her a short course of prednisone and have her use Advil and Tylenol. She does follow with orthopedics and may follow with them with any persisting symptoms. She was otherwise invited back to the ER with any new, worsening, or concerning episodes. The chart was completed utilizing [employer] Speech Voice Recognition Software. Grammatical errors, random word insertions, pronoun errors, and incomplete sentences are an occasional consequence of this system due to software limitations, ambient noise, and hardware issues. Any formal questions or concerns about the content, text, or information contained within the body of this dictation should be directly addressed to the provider for clarification. . Medical Decision Differential diagnosis includes, but is not limited to: Sprain, strain, fracture , dislocation, subluxation, contusion, and others Impression Primary Impression: Right hip pain Departure Information Dispostion Home / Self-Care Condition GOOD Prescriptions Prednisone (Prednisone Tab) 20 Mg Tab 2 TAB PO DAILY for 5 Days, #10 TAB Prov: Milan Olsen PA-C 02/22/18 Forms HOME CARE DOCUMENTATION FORM, IMPORTANT VISIT INFORMATION Patient Instructions [facility] Additional Instructions You were seen and evaluated today on an emergency basis only. This is not a substitute for, or an effort to provide, complete comprehensive medical care. It is not possible to recognize and treat all injuries or illnesses in a single emergency department visit. For this reason it is recommended that you followup with your primary care physician or orthopedics later this week with any ongoing or persisting symptoms. For baseline pain relief you may alternate ibuprofen and acetaminophen every 4 hours for pain control. Take 600 mg ibuprofen (Advil) and then 4 hours later take 1000 mg acetaminophen (Tylenol). Do not take more than 3000 mg acetaminophen in a single day. Take prednisone 40 mg daily for the next 5 days You are welcome to return to the emergency department anytime with new, worsening, or concerning symptoms.
== END 2018-02-22 22:33 | disposition home or self-care (01) ==
LOC: C.EDB 21:16 → C.EDD 22:33
DX: M25.551 Pain in right hip (principal)